=== PATIENT | female | born 1940 | race African-American/Black ===

== ENCOUNTER 2021-12-17 18:11 | Inpatient (IN) | payer OTHER ==
[2021-12-17] MEDS ORDERED: ASPIRIN 81 MG CHEWABLE TABLETS PO ONE (18:18)
[2021-12-17] MEDS: SODIUM CHLORIDE 1,000 ML IV SCH (18:42)
[2021-12-17] MEDS ORDERED: ASPIRIN 300 MG SUPP.RECT PR ONE (18:43)
[2021-12-17] MEDS ORDERED: ASPIRIN 300 MG SUPP.RECT RC ONE (18:53)
[2021-12-17 19:39] LABS: BASO % 0.9 % (0-2.0); EOS % 5.7 % (0-4.5); HEMATOCRIT 37.6 % (32.4-45.2); HEMOGLOBIN 12.4 GM/dL (10.7-15.3); LYMPH % 26.2 % (8-40); MCH 27.5 pg (25.7-33.7); MEAN CELL VOLUME 83.3 fl (80-96); MEAN PLT VOLUME 8.8 fl (7.5-11.1); MONO % 8.1 % (3.8-10.2); NEUT % 59.1 % (42.8-82.8); PLATELET COUNT 365 10^3/uL (134-434); RBC 4.51 M/mm3 (3.60-5.2); RDW 16.5 % (11.6-15.6); WHITE BLOOD COUNT 5.1 K/mm3 (4.0-10.0)
[2021-12-17 20:20] LABS: CALCIUM 9.4 mg/dL (8.5-10.1)
[2021-12-17 20:21] LABS: ALBUMIN 2.8 g/dl (3.4-5.0); BLOOD UREA NITROGEN 20.6 mg/dL (7-18)
[2021-12-17 20:24] LABS: CREATININE 0.7 mg/dL (0.55-1.3)
[2021-12-17 20:25] LABS: BILIRUBIN,TOTAL 0.4 mg/dL (0.2-1); TOT PROT 7.8 g/dl (6.4-8.2)
[2021-12-17 20:29] LABS: ACTIVATED PTT 27.9 SECONDS (25.2-36.5); INR 1.05 (0.83-1.09); PROTHROMBIN TIME (PATIENT) 12.1 SEC (9.7-13.0)
[2021-12-18 07:08] LABS: EPI CELLS 10 /uL (0-25.1); HYALINE CASTS 1 /uL (0-3.1); PH,URINE 6.5 (5.0-8.0); URINE APPEARANCE CLEAR; URINE BACTERIA >9,000 /uL (0-1359); URINE BILIRUBIN NEGATIVE (NEGATIVE); URINE COLOR YELLOW; URINE GLUCOSE (UA) NEGATIVE (NEGATIVE); URINE KETONE NEGATIVE (NEGATIVE); URINE LEUK ESTERASE NEGATIVE (NEGATIVE); URINE NITRITE POSITIVE (NEGATIVE); URINE PROTEIN TRACE (NEGATIVE); URINE RBC 30 /uL (0-23.9); URINE WBC 33 /uL (0-25.8)
[2021-12-18 07:55] LABS: BASO % 0.7 % (0-2.0); EOS % 2.3 % (0-4.5); HEMATOCRIT 36.3 % (32.4-45.2); LYMPH % 16.5 % (8-40); MCH 27.5 pg (25.7-33.7); MCHC 33.1 g/dl (32.0-36.0); MEAN CELL VOLUME 83.1 fl (80-96); MEAN PLT VOLUME 8.7 fl (7.5-11.1); MONO % 8.2 % (3.8-10.2); NEUT % 72.3 % (42.8-82.8); PLATELET COUNT 321 10^3/uL (134-434); RBC 4.37 M/mm3 (3.60-5.2); RDW 16.9 % (11.6-15.6); WHITE BLOOD COUNT 4.9 K/mm3 (4.0-10.0)
[2021-12-18 08:32] LABS: ALBUMIN 2.8 g/dl (3.4-5.0); BLOOD UREA NITROGEN 18.6 mg/dL (7-18); CALCIUM 9.2 mg/dL (8.5-10.1)
[2021-12-18 08:35] LABS: CREATININE 0.6 mg/dL (0.55-1.3)
[2021-12-18 08:36] LABS: BILIRUBIN,TOTAL 0.4 mg/dL (0.2-1)
[2021-12-18 08:37] LABS: TOT PROT 7.3 g/dl (6.4-8.2)
[2021-12-18] MEDS ORDERED: ASPIRIN 81 MG CHEWABLE TABLETS PO SCH (10:00)
[2021-12-18] MEDS ORDERED: cefTRIAXone SODIUM 1 GM VIAL ONE (10:20)
[2021-12-18] MEDS: CEFTRIAXONE 1 GM in DEXTROSE 5%-WATER - 50 ML IVPB ONE ×2 (10:23→11:12)
[2021-12-18] MEDS ORDERED: hydrALAZINE HCL 10 MG TABLET ONE ×3 (11:13→21:35)
[2021-12-18] MEDS ORDERED: METOPROLOL TARTRATE 25 MG TABLET (FP) ONE ×2 (11:13→21:35)
[2021-12-18] MEDS: METOPROLOL TARTRATE 25 MG TABLET (FP) NGT SCH ×2 (11:25→21:47)
[2021-12-18] MEDS: hydrALAZINE HCL 10 MG TABLET PO SCH ×4 (11:25→22:54)
[2021-12-18] MEDS: SODIUM CHLORIDE 1,000 ML IV SCH (19:15)
[2021-12-18] MEDS ORDERED: ATORVASTATIN CA 80 MG TABLET (FP) ONE (21:35)
[2021-12-18] MEDS: ATORVASTATIN CA 80 MG TABLET (FP) NGT SCH (21:47)
[2021-12-18] MEDS: LATANOPROST 0.005% OPHTH SOLN 2.5ML BOTTLE OU SCH (22:31)
[2021-12-19] MEDS ORDERED: CEFTRIAXONE 1 GM in DEXTROSE 5%-WATER - 50 ML IVPB SCH (10:00)
[2021-12-19] MEDS: hydrALAZINE HCL 10 MG TABLET PO SCH ×3 (10:41→17:23)
[2021-12-19] MEDS: METOPROLOL TARTRATE 25 MG TABLET (FP) NGT SCH ×2 (10:41→21:48)
[2021-12-19] MEDS: ASPIRIN 81 MG CHEWABLE TABLETS NGT SCH (10:41)
[2021-12-19] MEDS: NIFEdipine 10 MG CAPSULE (FP) PO SCH (14:15)
[2021-12-19] MEDS: VALSARTAN 80 MG TABLET PO SCH (14:37)
[2021-12-19] MEDS: LATANOPROST 0.005% OPHTH SOLN 2.5ML BOTTLE OU SCH (21:48)
[2021-12-19] MEDS: ATORVASTATIN CA 80 MG TABLET (FP) NGT SCH (21:48)
[2021-12-20] MEDS: hydrALAZINE HCL 10 MG TABLET PO SCH ×2 (00:17→05:43)
[2021-12-20] MEDS: VALSARTAN 80 MG TABLET PO SCH (09:27)
[2021-12-20] MEDS: ASPIRIN 81 MG CHEWABLE TABLETS NGT SCH (09:27)
[2021-12-20] MEDS: METOPROLOL TARTRATE 25 MG TABLET (FP) NGT SCH ×2 (09:27→22:16)
[2021-12-20] MEDS: hydrALAZINE HCL 25 MG TABLET (FP) PO SCH ×2 (13:30→22:16)
[2021-12-20 22:10] VITALS: BMI 23.8
[2021-12-20] MEDS: ATORVASTATIN CA 80 MG TABLET (FP) NGT SCH (22:16)
[2021-12-20] MEDS: LATANOPROST 0.005% OPHTH SOLN 2.5ML BOTTLE OU SCH (22:17)
[2021-12-21] MEDS: hydrALAZINE HCL 25 MG TABLET (FP) PO SCH ×4 (05:54→21:46)
[2021-12-21] MEDS: ASPIRIN 81 MG CHEWABLE TABLETS NGT SCH (09:05)
[2021-12-21] MEDS: METOPROLOL TARTRATE 25 MG TABLET (FP) NGT SCH ×3 (09:06→21:46)
[2021-12-21] MEDS: VALSARTAN 80 MG TABLET PO SCH (09:06)
[2021-12-21] MEDS: ATORVASTATIN CA 80 MG TABLET (FP) NGT SCH (21:43)
[2021-12-21] MEDS: LATANOPROST 0.005% OPHTH SOLN 2.5ML BOTTLE OU SCH (21:46)
[2021-12-22] MEDS: hydrALAZINE HCL 25 MG TABLET (FP) PO SCH (05:52)
[2021-12-22] MEDS: METOPROLOL TARTRATE 25 MG TABLET (FP) NGT SCH (09:43)
[2021-12-22] MEDS: VALSARTAN 80 MG TABLET PO SCH (09:43)
[2021-12-22] MEDS ORDERED: ASPIRIN/DIPYRIDAMOLE 25 MG/200 MG CAPSULE PO SCH (10:00)
[2021-12-22 13:19] VITALS: BP 128/58; PULSE 78; RESP 22; TEMP 97.4
== END 2021-12-22 14:44 | DRG 65 ==
LOC: JER 18:11 → JERBED 23:00 → J4W 12-18 22:08
PROVIDERS: ADMIT Internal Medicine; ATTEND Family Medicine
DX: I63.59 Cerebral infarction due to unspecified occlusion or stenosis of other cerebral artery (principal); G81.91 Hemiplegia, unspecified affecting right dominant side; N39.0 Urinary tract infection, site not specified; I10 Essential (primary) hypertension; G30.9 Alzheimer's disease, unspecified; F02.80 Dementia in other diseases classified elsewhere, unspecified severity, without behavioral disturbance, psychotic disturbance, mood disturbance, and anxiety; R47.81 Slurred speech; I44.30 Unspecified atrioventricular block
CPT/HCPCS: 36415; 70450-TC; 70496-TC; 70498-TC; 70551-TC; 71045-TC-FY; 80053; 80061; 81003; 83036; 84443; 84484; 85025; 85610; 85730; 86850; 86900; 86901; 93005; 93010; 93880-TC; 97116-GP; 97162-GP; 99285-25; C9803-CS; Q9967; U0003; U0005

== ENCOUNTER 2022-01-07 16:39 | Inpatient (IN) | payer OTHER ==
[2022-01-07 22:01] LABS: BASO % 0.8 % (0-2.0); EOS % 2.1 % (0-4.5); HEMATOCRIT 36.6 % (32.4-45.2); HEMOGLOBIN 12.1 GM/dL (10.7-15.3); LYMPH % 10.7 % (8-40); MCH 27.8 pg (25.7-33.7); MEAN CELL VOLUME 84.1 fl (80-96); MEAN PLT VOLUME 8.5 fl (7.5-11.1); MONO % 4.2 % (3.8-10.2); NEUT % 82.2 % (42.8-82.8); PLATELET COUNT 377 10^3/uL (134-434); RBC 4.36 M/mm3 (3.60-5.2); RDW 16.3 % (11.6-15.6); WHITE BLOOD COUNT 7.4 K/mm3 (4.0-10.0)
[2022-01-07 22:13] LABS: INR 1.18 (0.83-1.09); PROTHROMBIN TIME (PATIENT) 13.6 SEC (9.7-13.0)
[2022-01-07 22:16] LABS: ACTIVATED PTT 28.4 SECONDS (25.2-36.5)
[2022-01-07 22:23] LABS: CALCIUM 9.2 mg/dL (8.5-10.1)
[2022-01-07 22:24] LABS: ALBUMIN 2.8 g/dl (3.4-5.0); BLOOD UREA NITROGEN 10.6 mg/dL (7-18)
[2022-01-07 22:27] LABS: CREATININE 0.6 mg/dL (0.55-1.3)
[2022-01-07 22:28] LABS: BILIRUBIN,TOTAL 0.4 mg/dL (0.2-1); TOT PROT 7.1 g/dl (6.4-8.2)
[2022-01-08] MEDS: DEXTROSE 5%-NORMAL SALINE 1,000 ML IV SCH ×2 (00:36→16:14)
[2022-01-08] MEDS ORDERED: hydrALAZINE HCL 20 MG/ML VIAL IVPUSH PRN (10:19)
[2022-01-08] MEDS ORDERED: ACETAMINOPHEN 1000 MG/100 ML BAG IVPB PRN (10:21)
[2022-01-08 10:41] LABS: BASO % 0.6 % (0-2.0); EOS % 2.7 % (0-4.5); HEMATOCRIT 35.5 % (32.4-45.2); HEMOGLOBIN 11.7 GM/dL (10.7-15.3); LYMPH % 10.4 % (8-40); MEAN CELL VOLUME 84.9 fl (80-96); MEAN PLT VOLUME 8.7 fl (7.5-11.1); MONO % 6.5 % (3.8-10.2); NEUT % 79.8 % (42.8-82.8); PLATELET COUNT 322 10^3/uL (134-434); RBC 4.18 M/mm3 (3.60-5.2); WHITE BLOOD COUNT 6.5 K/mm3 (4.0-10.0)
[2022-01-08] MEDS: NYSTATIN 500,000 UNITS/5 ML SUSPENSION PO SCH ×3 (12:01→23:32)
[2022-01-08 12:23] LABS: BLOOD UREA NITROGEN 10.6 mg/dL (7-18); CREATININE 0.5 mg/dL (0.55-1.3); GLUCOSE,RANDOM 132 mg/dL (74-106); SODIUM 144 mmol/L (136-145)
[2022-01-08 12:24] LABS: CHLORIDE 4 mmol/L (98-107); CO2 112 mmol/L (21-32)
[2022-01-08 12:25] LABS: MAGNESIUM 1.9 mg/dL (1.8-2.4); PHOSPHOROUS 2.9 mg/dL (2.5-4.9)
[2022-01-09] MEDS: NYSTATIN 500,000 UNITS/5 ML SUSPENSION PO SCH ×4 (05:03→23:45)
[2022-01-09] MEDS: DEXTROSE 5%-NORMAL SALINE 1,000 ML IV SCH ×2 (05:03→17:39)
[2022-01-09] MEDS: NYSTATIN POWDER 100,000 UNITS/GM - 15 GM TOPICAL POWDER TP SCH ×2 (11:31→21:13)
[2022-01-09 13:04] VITALS: BMI 22.4
[2022-01-10] MEDS: NYSTATIN 500,000 UNITS/5 ML SUSPENSION PO SCH ×3 (06:47→17:58)
[2022-01-10] MEDS: DEXTROSE 5%-NORMAL SALINE 1,000 ML IV SCH ×2 (06:48→11:16)
[2022-01-10] MEDS: NYSTATIN POWDER 100,000 UNITS/GM - 15 GM TOPICAL POWDER TP SCH ×2 (11:15→22:18)
[2022-01-10] MEDS: PANTOPRAZOLE SODIUM 40 MG VIAL IVPUSH SCH (11:16)
[2022-01-10] MEDS: METOPROLOL TARTRATE 5 MG/5 ML VIAL IVPUSH PRN ×2 (11:17→18:34)
[2022-01-10] MEDS ORDERED: cloNIDine-TTS 0.1 MG/24 HRS PATCH.TDWK TD SCH (14:30)
[2022-01-10] MEDS: METOPROLOL TARTRATE 5 MG/5 ML VIAL IVPB PRN (22:19)
[2022-01-11] MEDS: NYSTATIN 500,000 UNITS/5 ML SUSPENSION PO SCH ×5 (01:21→23:11)
[2022-01-11] MEDS: DEXTROSE 5%-NORMAL SALINE 1,000 ML IV SCH ×2 (02:01→21:10)
[2022-01-11] MEDS: METOPROLOL TARTRATE 5 MG/5 ML VIAL IVPB PRN ×3 (06:19→21:10)
[2022-01-11] MEDS: NYSTATIN POWDER 100,000 UNITS/GM - 15 GM TOPICAL POWDER TP SCH ×2 (10:02→21:10)
[2022-01-11] MEDS: PANTOPRAZOLE SODIUM 40 MG VIAL IVPUSH SCH (10:02)
[2022-01-12] MEDS: NYSTATIN 500,000 UNITS/5 ML SUSPENSION PO SCH ×4 (05:18→23:04)
[2022-01-12] MEDS: METOPROLOL TARTRATE 5 MG/5 ML VIAL IVPB PRN (06:43)
[2022-01-12 08:05] LABS: HEMATOCRIT 36.6 % (32.4-45.2); HEMOGLOBIN 11.8 GM/dL (10.7-15.3); MCHC 32.1 g/dl (32.0-36.0); MEAN PLT VOLUME 9.1 fl (7.5-11.1); PLATELET COUNT 282 10^3/uL (134-434); RBC 4.35 M/mm3 (3.60-5.2); RDW 16.2 % (11.6-15.6); WHITE BLOOD COUNT 8.8 K/mm3 (4.0-10.0)
[2022-01-12 08:30] LABS: CALCIUM 8.9 mg/dL (8.5-10.1)
[2022-01-12 08:31] LABS: BLOOD UREA NITROGEN 8.5 mg/dL (7-18); MAGNESIUM 1.5 mg/dL (1.8-2.4)
[2022-01-12 08:34] LABS: CREATININE 0.4 mg/dL (0.55-1.3)
[2022-01-12 08:36] LABS: ALBUMIN 2.1 g/dl (3.4-5.0)
[2022-01-12] MEDS: PANTOPRAZOLE SODIUM 40 MG VIAL IVPUSH SCH (09:48)
[2022-01-12] MEDS: NYSTATIN POWDER 100,000 UNITS/GM - 15 GM TOPICAL POWDER TP SCH ×2 (09:48→23:05)
[2022-01-12] MEDS ORDERED: KCL 10 MEQ IVPB 10 MEQ/100 ML INFUS.BAG IVPB SCH ×2 (13:45→17:30)
[2022-01-12] MEDS: DEXTROSE 5%-NORMAL SALINE 1,000 ML IV SCH (18:20)
[2022-01-13] MEDS: NYSTATIN 500,000 UNITS/5 ML SUSPENSION PO SCH ×4 (05:25→23:05)
[2022-01-13] MEDS: PANTOPRAZOLE SODIUM 40 MG VIAL IVPUSH SCH (09:36)
[2022-01-13] MEDS: NYSTATIN POWDER 100,000 UNITS/GM - 15 GM TOPICAL POWDER TP SCH ×2 (09:37→22:54)
[2022-01-13] MEDS: DEXTROSE 5%-NORMAL SALINE 1,000 ML IV SCH (11:58)
[2022-01-13] MEDS ORDERED: MAGNESIUM SULF 50% (8.12 MEQ/2 ML-1 GM VIAL) IVPB ONE (12:01)
[2022-01-13] MEDS ORDERED: AMINO ACIDS 4.25%/D5W 1,000 ML IV SCH (12:15)
[2022-01-13] MEDS: KCL 10 MEQ IVPB 10 MEQ/100 ML INFUS.BAG IVPB SCH ×2 (15:58→16:59)
[2022-01-14] MEDS: METOPROLOL TARTRATE 5 MG/5 ML VIAL IVPB PRN ×3 (03:04→18:26)
[2022-01-14] MEDS: NYSTATIN 500,000 UNITS/5 ML SUSPENSION PO SCH ×3 (06:50→18:28)
[2022-01-14] MEDS: PANTOPRAZOLE SODIUM 40 MG VIAL IVPUSH SCH (10:59)
[2022-01-14] MEDS: NYSTATIN POWDER 100,000 UNITS/GM - 15 GM TOPICAL POWDER TP SCH ×2 (11:00→22:47)
[2022-01-14] MEDS ORDERED: GLUCAGON 1 MG KIT ONE (11:44)
[2022-01-14 12:38] LABS: HEMATOCRIT 34.2 % (32.4-45.2); HEMOGLOBIN 11.3 GM/dL (10.7-15.3); MCH 27.8 pg (25.7-33.7); MEAN CELL VOLUME 84.2 fl (80-96); MEAN PLT VOLUME 8.9 fl (7.5-11.1); PLATELET COUNT 295 10^3/uL (134-434); RBC 4.06 M/mm3 (3.60-5.2); RDW 15.5 % (11.6-15.6); WHITE BLOOD COUNT 7.5 K/mm3 (4.0-10.0)
[2022-01-14] MEDS ORDERED: FENTANYL CITRATE/PF 50 MCG/ML VIAL IVPUSH ONE ×2 (13:20→13:30)
[2022-01-14] MEDS ORDERED: GLUCAGON 1 MG KIT IVPUSH ONE (13:26)
[2022-01-14 14:34] LABS: CALCIUM 8.8 mg/dL (8.5-10.1); MAGNESIUM 1.8 mg/dL (1.8-2.4)
[2022-01-14 14:37] LABS: CREATININE 0.4 mg/dL (0.55-1.3)
[2022-01-14] MEDS: POTASSIUM CHLORIDE 20 MEQ in AMINO ACIDS 4.25%/D5W 1,000 ML IV SCH (18:27)
[2022-01-15] MEDS: NYSTATIN 500,000 UNITS/5 ML SUSPENSION PO SCH ×3 (05:55)
[2022-01-15] MEDS ORDERED: ACETAMINOPHEN 650 MG/20.3 ML ORAL SOLUTION (CUPS) GT PRN (07:00)
[2022-01-15 09:54] LABS: CREATININE 0.4 mg/dL (0.55-1.3)
[2022-01-15 09:55] LABS: TOT PROT 5.8 g/dl (6.4-8.2)
[2022-01-15 09:56] LABS: BLOOD UREA NITROGEN 16.9 mg/dL (7-18); CALCIUM 8.7 mg/dL (8.5-10.1)
[2022-01-15 09:58] LABS: BILIRUBIN,TOTAL 0.6 mg/dL (0.2-1)
[2022-01-15] MEDS ORDERED: FAMOTIDINE 40 MG/5 ML ORAL SUSPENSION PEG SCH (10:00)
[2022-01-15] MEDS ORDERED: METOPROLOL TARTRATE 25 MG TABLET (FP) GT SCH (10:00)
[2022-01-15 10:15] LABS: MAGNESIUM 1.5 mg/dL (1.8-2.4)
[2022-01-15] MEDS: NYSTATIN POWDER 100,000 UNITS/GM - 15 GM TOPICAL POWDER TP SCH ×2 (10:53→21:38)
[2022-01-15] MEDS ORDERED: MAGNESIUM SULF 50% (8.12 MEQ/2 ML-1 GM VIAL) IVPB ONE (10:56)
[2022-01-15] MEDS: PANTOPRAZOLE SODIUM 40 MG VIAL IVPUSH SCH (12:18)
[2022-01-15] MEDS: METOPROLOL TARTRATE 5 MG/5 ML VIAL IVPB PRN (14:09)
[2022-01-15] MEDS: KCL 10 MEQ IVPB 10 MEQ/100 ML INFUS.BAG IVPB SCH ×3 (15:16→16:57)
[2022-01-15] MEDS ORDERED: AMINO ACIDS 4.25%/D5W 1,000 ML IV SCH (18:45)
[2022-01-15] MEDS: POTASSIUM CHLORIDE ORAL LIQUID 20 MEQ/15 ML PEG SCH (19:31)
[2022-01-15] MEDS: POTASSIUM CHLORIDE 20 MEQ in AMINO ACIDS 4.25%/D5W 1,000 ML IV SCH (21:38)
[2022-01-16] MEDS: METOPROLOL TARTRATE 5 MG/5 ML VIAL IVPB PRN ×2 (07:54→23:13)
[2022-01-16 08:19] LABS: HEMATOCRIT 32.5 % (32.4-45.2); HEMOGLOBIN 10.8 GM/dL (10.7-15.3); MCH 27.7 pg (25.7-33.7); MCHC 33.4 g/dl (32.0-36.0); MEAN CELL VOLUME 82.9 fl (80-96); MEAN PLT VOLUME 8.9 fl (7.5-11.1); PLATELET COUNT 294 10^3/uL (134-434); RBC 3.92 M/mm3 (3.60-5.2); RDW 15.7 % (11.6-15.6); WHITE BLOOD COUNT 10.3 K/mm3 (4.0-10.0)
[2022-01-16 08:56] LABS: BLOOD UREA NITROGEN 16.4 mg/dL (7-18); CALCIUM 8.8 mg/dL (8.5-10.1); MAGNESIUM 1.8 mg/dL (1.8-2.4)
[2022-01-16 08:59] LABS: CREATININE 0.4 mg/dL (0.55-1.3)
[2022-01-16 09:03] LABS: BILIRUBIN,TOTAL 0.7 mg/dL (0.2-1); TOT PROT 6.1 g/dl (6.4-8.2)
[2022-01-16] MEDS: NYSTATIN POWDER 100,000 UNITS/GM - 15 GM TOPICAL POWDER TP SCH ×2 (09:21→21:32)
[2022-01-16] MEDS: PANTOPRAZOLE SODIUM 40 MG VIAL IVPUSH SCH (09:21)
[2022-01-16] MEDS: POTASSIUM CHLORIDE 20 MEQ in AMINO ACIDS 4.25%/D5W 1,000 ML IV SCH ×2 (10:38→17:00)
[2022-01-16] MEDS ORDERED: ONDANSETRON 4 MG/2 ML VIAL IVPUSH PRN ×2 (12:53→15:09)
[2022-01-16] MEDS ORDERED: LACTATED RINGERS SOLUTION 1,000 ML IV SCH (13:00)
[2022-01-16] MEDS ORDERED: ETOMIDATE 20 MG/10 ML AMPUL IVPUSH ONE (13:01)
[2022-01-16] MEDS ORDERED: LIDOCAINE HCL/PF 2% SDV 5ML VIAL ONE (13:03)
[2022-01-16] MEDS ORDERED: PIPERACILLIN/TAZOBACTAM 3.375 GM VIAL IVPB ONE (13:39)
[2022-01-16] MEDS ORDERED: GLYCOPYRROLATE 0.2 MG/1 ML VIAL ONE (14:02)
[2022-01-16] MEDS ORDERED: ONDANSETRON 4 MG/2 ML VIAL ONE ×2 (14:02→14:14)
[2022-01-16] MEDS ORDERED: NEOSTIGMINE METHYLSULFATE 0.5 MG/ML - 10 ML MDV ONE (14:02)
[2022-01-16] MEDS ORDERED: ACETAMINOPHEN 650 MG/20.3 ML ORAL SOLUTION (CUPS) GT PRN (15:09)
[2022-01-16] MEDS: KCL 10 MEQ IVPB 10 MEQ/100 ML INFUS.BAG IVPB SCH ×3 (15:24→17:57)
[2022-01-16] MEDS ORDERED: hydrALAZINE HCL 20 MG/ML VIAL IVPUSH ONE (16:08)
[2022-01-16] MEDS: LACTATED RINGERS SOLUTION 1,000 ML IV SCH ×2 (16:20→17:02)
[2022-01-16] MEDS: FAT EMULSION/OLIVE/SOY/PHOSPHO 250 ML IV SCH (21:29)
[2022-01-16] MEDS ORDERED: FAT EMULSION/OLIVE/SOY/PHOSPHO 250 ML IV SCH (22:00)
[2022-01-16] MEDS ORDERED: FAT EMULSION/OLIVE/SOY (CLINOLIPID) 250 ML EMULSION IV SCH (22:00)
[2022-01-17] MEDS: POTASSIUM CHLORIDE 20 MEQ in AMINO ACIDS 4.25%/D5W 1,000 ML IV SCH (02:37)
[2022-01-17] MEDS: METOPROLOL TARTRATE 5 MG/5 ML VIAL IVPB PRN (06:37)
[2022-01-17] MEDS: CYANOCOBALAMIN (VITAMIN B-12) 1000 MCG/1 ML VIAL IM SCH (09:07)
[2022-01-17] MEDS: PANTOPRAZOLE SODIUM 40 MG VIAL IVPUSH SCH (09:07)
[2022-01-17] MEDS: NYSTATIN POWDER 100,000 UNITS/GM - 15 GM TOPICAL POWDER TP SCH ×2 (09:07→22:45)
[2022-01-17] MEDS: THIAMINE HCL 200 MG/2 ML VIAL IVPB SCH (09:07)
[2022-01-17 09:22] LABS: HEMATOCRIT 32.4 % (32.4-45.2); HEMOGLOBIN 10.7 GM/dL (10.7-15.3); MCH 27.5 pg (25.7-33.7); MCHC 33.2 g/dl (32.0-36.0); MEAN CELL VOLUME 82.8 fl (80-96); MEAN PLT VOLUME 9.2 fl (7.5-11.1); PLATELET COUNT 343 10^3/uL (134-434); RBC 3.91 M/mm3 (3.60-5.2); RDW 15.7 % (11.6-15.6)
[2022-01-17 09:57] LABS: BLOOD UREA NITROGEN 17.1 mg/dL (7-18); CALCIUM 8.7 mg/dL (8.5-10.1)
[2022-01-17 09:58] LABS: ALBUMIN 1.8 g/dl (3.4-5.0); MAGNESIUM 1.7 mg/dL (1.8-2.4)
[2022-01-17 10:00] LABS: CREATININE 0.4 mg/dL (0.55-1.3)
[2022-01-17] MEDS ORDERED: CYANOCOBALAMIN (VITAMIN B-12) 1000 MCG/1 ML VIAL IM SCH (10:00)
[2022-01-17] MEDS ORDERED: THIAMINE HCL 200 MG/2 ML VIAL IVPB SCH (10:00)
[2022-01-17 10:02] LABS: BILIRUBIN,TOTAL 0.7 mg/dL (0.2-1); TOT PROT 5.9 g/dl (6.4-8.2)
[2022-01-17] MEDS ORDERED: MULTIVIT INJ. ADULT COMBO WITH VIT K 1 COMBO 10 ML VIAL IV SCH ×2 (11:00)
[2022-01-17] MEDS: AMINO ACIDS 4.25%/D5W 1,000 ML with POTASSIUM CHLORIDE 20 MEQ IV SCH (17:10)
[2022-01-17] MEDS: FAT EMULSION/OLIVE/SOY/PHOSPHO 250 ML IV SCH (22:44)
[2022-01-18] MEDS: METOPROLOL TARTRATE 5 MG/5 ML VIAL IVPB PRN (01:08)
[2022-01-18] MEDS: AMINO ACIDS 4.25%/D5W 1,000 ML with POTASSIUM CHLORIDE 20 MEQ IV SCH ×2 (06:44→06:45)
[2022-01-18] MEDS: PANTOPRAZOLE SODIUM 40 MG VIAL IVPUSH SCH (09:03)
[2022-01-18] MEDS: THIAMINE HCL 200 MG/2 ML VIAL IVPB SCH (09:03)
[2022-01-18] MEDS: CYANOCOBALAMIN (VITAMIN B-12) 1000 MCG/1 ML VIAL IM SCH (09:03)
[2022-01-18] MEDS: NYSTATIN POWDER 100,000 UNITS/GM - 15 GM TOPICAL POWDER TP SCH ×2 (09:04→21:09)
[2022-01-18 09:33] LABS: BASO % 0.4 % (0-2.0); EOS % 1.1 % (0-4.5); HEMATOCRIT 34.6 % (32.4-45.2); HEMOGLOBIN 11.2 GM/dL (10.7-15.3); LYMPH % 6.4 % (8-40); MCH 26.9 pg (25.7-33.7); MCHC 32.3 g/dl (32.0-36.0); MEAN CELL VOLUME 83.3 fl (80-96); MEAN PLT VOLUME 9.5 fl (7.5-11.1); MONO % 4.3 % (3.8-10.2); NEUT % 87.8 % (42.8-82.8); PLATELET COUNT 403 10^3/uL (134-434); RBC 4.16 M/mm3 (3.60-5.2); RDW 15.9 % (11.6-15.6)
[2022-01-18 09:52] LABS: WHITE BLOOD COUNT 16.4 K/mm3 (4.0-10.0)
[2022-01-18 09:54] LABS: ALBUMIN 1.9 g/dl (3.4-5.0); BLOOD UREA NITROGEN 14.7 mg/dL (7-18)
[2022-01-18 09:57] LABS: CREATININE 0.4 mg/dL (0.55-1.3)
[2022-01-18 09:59] LABS: BILIRUBIN,TOTAL 0.5 mg/dL (0.2-1); TOT PROT 6.2 g/dl (6.4-8.2)
[2022-01-18] MEDS: LACTATED RINGERS SOLUTION 1,000 ML IV SCH (19:23)
[2022-01-19] MEDS: CYANOCOBALAMIN (VITAMIN B-12) 1000 MCG/1 ML VIAL IM SCH (10:49)
[2022-01-19] MEDS: THIAMINE HCL 200 MG/2 ML VIAL IVPB SCH (10:50)
[2022-01-19] MEDS: PANTOPRAZOLE SODIUM 40 MG VIAL IVPUSH SCH (10:50)
[2022-01-19] MEDS: NYSTATIN POWDER 100,000 UNITS/GM - 15 GM TOPICAL POWDER TP SCH ×2 (10:50→22:08)
[2022-01-19] MEDS: METOPROLOL TARTRATE 5 MG/5 ML VIAL IVPB PRN (22:09)
[2022-01-20 08:11] LABS: HEMATOCRIT 30.4 % (32.4-45.2); HEMOGLOBIN 9.9 GM/dL (10.7-15.3); MCH 27.4 pg (25.7-33.7); MCHC 32.4 g/dl (32.0-36.0); MEAN CELL VOLUME 84.5 fl (80-96); MEAN PLT VOLUME 8.7 fl (7.5-11.1); PLATELET COUNT 421 10^3/uL (134-434); RDW 15.9 % (11.6-15.6); WHITE BLOOD COUNT 11.9 K/mm3 (4.0-10.0)
[2022-01-20 08:18] LABS: BLOOD UREA NITROGEN 11.9 mg/dL (7-18); CALCIUM 8.5 mg/dL (8.5-10.1)
[2022-01-20 08:20] LABS: ALBUMIN 1.7 g/dl (3.4-5.0)
[2022-01-20 08:21] LABS: CREATININE 0.3 mg/dL (0.55-1.3)
[2022-01-20 08:23] LABS: BILIRUBIN,TOTAL 0.4 mg/dL (0.2-1); TOT PROT 5.5 g/dl (6.4-8.2)
[2022-01-20 09:26] LABS: ANISOCYTOSIS 2+; MACROCYTOSIS 0
[2022-01-20] MEDS: NYSTATIN POWDER 100,000 UNITS/GM - 15 GM TOPICAL POWDER TP SCH ×2 (11:08→22:36)
[2022-01-20] MEDS: THIAMINE HCL 200 MG/2 ML VIAL IVPB SCH (11:14)
[2022-01-20] MEDS: CYANOCOBALAMIN (VITAMIN B-12) 1000 MCG/1 ML VIAL IM SCH (11:15)
[2022-01-20] MEDS ORDERED: CEFAZOLIN 1 GM in DEXTROSE 5%-WATER - 50 ML IVPB SCH (18:00)
[2022-01-20] MEDS: PIPERACILLIN/TAZOB 3.375 GM 3.375 GM in DEXTROSE 5%-WATER - 50 ML IVPB SCH (18:22)
[2022-01-20] MEDS: VALSARTAN 80 MG TABLET PO SCH (18:22)
[2022-01-20] MEDS: VANCOMYCIN/WATER FOR INJ (PEG) 1,000 MG/200 ML BAG IVPB SCH (20:06)
[2022-01-20] MEDS ORDERED: metoPROLOL SUCCINATE 25 MG TAB.SR.24H (FP) PO SCH (22:00)
[2022-01-20] MEDS: METOPROLOL TARTRATE 25 MG TABLET (FP) PO SCH (22:36)
[2022-01-21] MEDS: PIPERACILLIN/TAZOB 3.375 GM 3.375 GM in DEXTROSE 5%-WATER - 50 ML IVPB SCH ×3 (01:21→17:39)
[2022-01-21] MEDS: VALSARTAN 80 MG TABLET PO SCH (09:19)
[2022-01-21] MEDS: METOPROLOL TARTRATE 25 MG TABLET (FP) PO SCH ×2 (09:20→21:58)
[2022-01-21] MEDS: CYANOCOBALAMIN (VITAMIN B-12) 1000 MCG/1 ML VIAL IM SCH (09:20)
[2022-01-21] MEDS: NYSTATIN POWDER 100,000 UNITS/GM - 15 GM TOPICAL POWDER TP SCH ×2 (09:22→21:58)
[2022-01-21 09:40] LABS: CALCIUM 9.3 mg/dL (8.5-10.1)
[2022-01-21 09:41] LABS: ALBUMIN 1.9 g/dl (3.4-5.0); BLOOD UREA NITROGEN 10.2 mg/dL (7-18)
[2022-01-21 09:43] LABS: BILIRUBIN,DIRECT 0.2 mg/dL (0.0-0.2); CREATININE 0.4 mg/dL (0.55-1.3)
[2022-01-21 09:45] LABS: BILIRUBIN,TOTAL 0.4 mg/dL (0.2-1); TOT PROT 6.1 g/dl (6.4-8.2)
[2022-01-21] MEDS: POLYETHYLENE GLYCOL (HEALTHYLAX) 3350 17 GM PACKET GT SCH ×3 (12:00→21:58)
[2022-01-21] MEDS: VANCOMYCIN/WATER FOR INJ (PEG) 1,000 MG/200 ML BAG IVPB SCH (17:39)
[2022-01-22] MEDS: PIPERACILLIN/TAZOB 3.375 GM 3.375 GM in DEXTROSE 5%-WATER - 50 ML IVPB SCH ×2 (02:35→11:49)
[2022-01-22] MEDS ORDERED: cloNIDine-TTS 0.1 MG/24 HRS PATCH.TDWK TD SCH ×2 (10:00)
[2022-01-22 10:06] LABS: HEMATOCRIT 30.2 % (32.4-45.2); HEMOGLOBIN 9.8 GM/dL (10.7-15.3); MCH 27.1 pg (25.7-33.7); MCHC 32.6 g/dl (32.0-36.0); MEAN CELL VOLUME 83.2 fl (80-96); MEAN PLT VOLUME 8.6 fl (7.5-11.1); PLATELET COUNT 487 10^3/uL (134-434); RBC 3.62 M/mm3 (3.60-5.2); RDW 15.9 % (11.6-15.6); WHITE BLOOD COUNT 9.4 K/mm3 (4.0-10.0)
[2022-01-22 10:39] LABS: ALBUMIN 1.8 g/dl (3.4-5.0)
[2022-01-22 10:40] LABS: BLOOD UREA NITROGEN 10.4 mg/dL (7-18); CALCIUM 8.9 mg/dL (8.5-10.1)
[2022-01-22 10:42] LABS: CREATININE 0.4 mg/dL (0.55-1.3)
[2022-01-22 10:43] LABS: BILIRUBIN,DIRECT 0.2 mg/dL (0.0-0.2)
[2022-01-22 10:44] LABS: BILIRUBIN,TOTAL 0.3 mg/dL (0.2-1); TOT PROT 5.9 g/dl (6.4-8.2)
[2022-01-22] MEDS: VALSARTAN 80 MG TABLET PO SCH (11:22)
[2022-01-22] MEDS: POLYETHYLENE GLYCOL (HEALTHYLAX) 3350 17 GM PACKET GT SCH ×2 (11:22→21:40)
[2022-01-22] MEDS: METOPROLOL TARTRATE 25 MG TABLET (FP) PO SCH ×2 (11:22→21:40)
[2022-01-22] MEDS: NYSTATIN POWDER 100,000 UNITS/GM - 15 GM TOPICAL POWDER TP SCH ×2 (11:43→21:40)
[2022-01-22] MEDS ORDERED: VALSARTAN 80 MG TABLET PO ONE (14:51)
[2022-01-22] MEDS: AMOX TR/POTASSIUM CLAVULANATE 250 MG/5 ML BOTTLE GT SCH (17:35)
[2022-01-23] MEDS: AMOX TR/POTASSIUM CLAVULANATE 250 MG/5 ML BOTTLE GT SCH (08:30)
[2022-01-23 09:34] LABS: TOT PROT 6.3 g/dl (6.4-8.2)
[2022-01-23 09:35] LABS: BILIRUBIN,TOTAL 0.3 mg/dL (0.2-1)
[2022-01-23 09:39] LABS: BILIRUBIN,DIRECT 0.1 mg/dL (0.0-0.2)
[2022-01-23] MEDS ORDERED: VALSARTAN 80 MG TABLET PO SCH (10:00)
[2022-01-23] MEDS: NYSTATIN POWDER 100,000 UNITS/GM - 15 GM TOPICAL POWDER TP SCH (10:23)
[2022-01-23] MEDS: POLYETHYLENE GLYCOL (HEALTHYLAX) 3350 17 GM PACKET GT SCH (10:23)
[2022-01-23] MEDS: METOPROLOL TARTRATE 25 MG TABLET (FP) PO SCH (10:23)
[2022-01-23 10:34] VITALS: RESP 20
[2022-01-23 14:47] VITALS: BP 201/90; PULSE 74; TEMP 98.2
== END 2022-01-23 14:55 | DRG 981 ==
LOC: JER 16:39 → SUPCPDRO 16:39 → UNDOADMOB 19:55 → JERBED 19:55 → J7W 01-08 03:04 → INTOOBSV 01-09 10:32 → OBSVTOIN 01-09 10:32 → J7W 01-09 10:42 → OBSVTOIN 01-09 10:42 → JERBED 01-09 10:42
PROVIDERS: ADMIT Hospitalist; ATTEND Family Medicine
PROC: 0DH67UZ Insertion of Feeding Device into Stomach, Via Natural or Artificial Opening (ICD-10-PCS; principal; 2022-01-13)
PROC: 3E0G76Z Introduction of Nutritional Substance into Upper GI, Via Natural or Artificial Opening (ICD-10-PCS; 2022-01-13)
PROC: 0DP64UZ Removal of Feeding Device from Stomach, Percutaneous Endoscopic Approach (ICD-10-PCS; 2022-01-16)
PROC: 0DH64UZ Insertion of Feeding Device into Stomach, Percutaneous Endoscopic Approach (ICD-10-PCS; 2022-01-16)
PROC: 0DJ04ZZ Inspection of Upper Intestinal Tract, Percutaneous Endoscopic Approach (ICD-10-PCS; 2022-01-16 12:00)
DX: I69.891 Dysphagia following other cerebrovascular disease (principal); R53.2 Functional quadriplegia; B37.0 Candidal stomatitis; R47.01 Aphasia; T85.528A Displacement of other gastrointestinal prosthetic devices, implants and grafts, initial encounter; L02.211 Cutaneous abscess of abdominal wall; K94.22 Gastrostomy infection; T81.49XA Infection following a procedure, other surgical site, initial encounter; G30.9 Alzheimer's disease, unspecified; F02.80 Dementia in other diseases classified elsewhere, unspecified severity, without behavioral disturbance, psychotic disturbance, mood disturbance, and anxiety; E87.6 Hypokalemia; E83.42 Hypomagnesemia; I10 Essential (primary) hypertension; E86.0 Dehydration; E78.5 Hyperlipidemia, unspecified; M19.012 Primary osteoarthritis, left shoulder; M19.011 Primary osteoarthritis, right shoulder; D50.9 Iron deficiency anemia, unspecified; K59.00 Constipation, unspecified; B96.1 Klebsiella pneumoniae [K. pneumoniae] as the cause of diseases classified elsewhere; B95.61 Methicillin susceptible Staphylococcus aureus infection as the cause of diseases classified elsewhere; L89.152 Pressure ulcer of sacral region, stage 2; R62.7 Adult failure to thrive; Z68.22 Body mass index [BMI] 22.0-22.9, adult; Y84.8 Other medical procedures as the cause of abnormal reaction of the patient, or of later complication, without mention of misadventure at the time of the procedure; R79.89 Other specified abnormal findings of blood chemistry; Y83.8 Other surgical procedures as the cause of abnormal reaction of the patient, or of later complication, without mention of misadventure at the time of the procedure
CPT/HCPCS: 0241U-QW; 36415; 43752; 49440; 70450-TC; 71045-TC-FY; 74018-TC-FY; 74150-TC; 80048; 80053; 80076; 82728; 83516; 83540; 83550; 83735; 84100; 85025; 85027; 85610; 85730; 86038; 86140; 86803; 86850; 86900; 86901; 87040; 87070; 87186; 87205; 87340; 87517; 88300-TC; 93005; 93010; 94760; 99285-25; C9803-CS; U0003; U0005

== ENCOUNTER 2022-02-27 13:41 | Emergency (ER) | payer OTHER ==
[2022-02-27 14:00] VITALS: BP 136/73; PULSE 97; RESP 18; TEMP 97.4; BMI 25.7
== END 2022-02-27 19:10 ==
LOC: JER 13:41
DX: K94.23 Gastrostomy malfunction (principal)
CPT/HCPCS: 49440; 99284-25

== ENCOUNTER 2022-04-19 08:44 | Inpatient (IN) | payer OTHER ==
[2022-04-19 09:03] VITALS: BMI 19.9
[2022-04-19 14:22] LABS: BASO % 0.9 % (0-2.0); EOS % 3.2 % (0-4.5); HEMATOCRIT 27.6 % (32.4-45.2); HEMOGLOBIN 8.9 GM/dL (10.7-15.3); LYMPH % 20.3 % (8-40); MCH 26.5 pg (25.7-33.7); MCHC 32.3 g/dl (32.0-36.0); MEAN CELL VOLUME 82.2 fl (80-96); MEAN PLT VOLUME 7.9 fl (7.5-11.1); MONO % 8.1 % (3.8-10.2); NEUT % 67.5 % (42.8-82.8); PLATELET COUNT 565 10^3/uL (134-434); RBC 3.36 M/mm3 (3.60-5.2); RDW 16.6 % (11.6-15.6); WHITE BLOOD COUNT 7.2 K/mm3 (4.0-10.0)
[2022-04-19 14:49] LABS: CALCIUM 9.4 mg/dL (8.5-10.1)
[2022-04-19 14:50] LABS: BLOOD UREA NITROGEN 24.8 mg/dL (7-18); MAGNESIUM 2.2 mg/dL (1.8-2.4)
[2022-04-19 14:53] LABS: CREATININE 0.4 mg/dL (0.55-1.3)
[2022-04-19 14:54] LABS: BILIRUBIN,TOTAL 0.4 mg/dL (0.2-1); TOT PROT 7.4 g/dl (6.4-8.2)
[2022-04-19] MEDS ORDERED: METOPROLOL TARTRATE 25 MG TABLET (FP) GT SCH (22:00)
[2022-04-19] MEDS ORDERED: hydrALAZINE HCL 25 MG TABLET (FP) GT SCH (22:00)
[2022-04-20 06:55] VITALS: BP 119/77; PULSE 113; RESP 18; TEMP 98.9
[2022-04-20 08:48] LABS: BASO % 0.9 % (0-2.0); EOS % 4.9 % (0-4.5); HEMATOCRIT 29.1 % (32.4-45.2); HEMOGLOBIN 9.4 GM/dL (10.7-15.3); LYMPH % 20.3 % (8-40); MCH 26.5 pg (25.7-33.7); MCHC 32.2 g/dl (32.0-36.0); MEAN CELL VOLUME 82.2 fl (80-96); MEAN PLT VOLUME 8.1 fl (7.5-11.1); MONO % 9.9 % (3.8-10.2); PLATELET COUNT 561 10^3/uL (134-434); RBC 3.54 M/mm3 (3.60-5.2); WHITE BLOOD COUNT 6.2 K/mm3 (4.0-10.0)
[2022-04-20 09:28] LABS: BLOOD UREA NITROGEN 20.7 mg/dL (7-18)
[2022-04-20 09:30] LABS: CALCIUM 9.4 mg/dL (8.5-10.1)
[2022-04-20 09:31] LABS: ALBUMIN 2.1 g/dl (3.4-5.0); MAGNESIUM 2.1 mg/dL (1.8-2.4)
[2022-04-20 09:34] LABS: CREATININE 0.4 mg/dL (0.55-1.3); PHOSPHOROUS 3.4 mg/dL (2.5-4.9)
[2022-04-20 09:36] LABS: BILIRUBIN,TOTAL 0.4 mg/dL (0.2-1); TOT PROT 7.7 g/dl (6.4-8.2)
[2022-04-20] MEDS ORDERED: ATORVASTATIN CA 80 MG TABLET (FP) GT SCH (10:00)
[2022-04-20] MEDS ORDERED: FAMOTIDINE 40 MG/5 ML ORAL SUSPENSION PO SCH (10:00)
[2022-04-20] MEDS ORDERED: ASPIRIN 81 MG CHEWABLE TABLETS GT SCH (10:00)
== END 2022-04-20 13:55 | DRG 394 ==
LOC: JER 08:44 → JERBED 12:38 → OBSVTOIN 17:02
PROVIDERS: ADMIT Internal Medicine; ATTEND Family Medicine
PROC: 0DH63UZ Insertion of Feeding Device into Stomach, Percutaneous Approach (ICD-10-PCS; principal; 2022-04-20)
DX: K94.23 Gastrostomy malfunction (principal); I69.351 Hemiplegia and hemiparesis following cerebral infarction affecting right dominant side; Y83.8 Other surgical procedures as the cause of abnormal reaction of the patient, or of later complication, without mention of misadventure at the time of the procedure; I10 Essential (primary) hypertension; G30.9 Alzheimer's disease, unspecified; F02.80 Dementia in other diseases classified elsewhere, unspecified severity, without behavioral disturbance, psychotic disturbance, mood disturbance, and anxiety; I69.320 Aphasia following cerebral infarction; I69.390 Apraxia following cerebral infarction; E78.5 Hyperlipidemia, unspecified; R13.10 Dysphagia, unspecified
CPT/HCPCS: 36415; 49440; 80053; 82728; 83540; 83550; 83735; 84100; 84466; 85025; 85045; 93005; 93010; 99285-25; C9803-CS; G0378; U0003; U0005

== ENCOUNTER 2022-06-17 00:30 | Inpatient (IN) | payer OTHER ==
[2022-06-17 00:48] VITALS: BMI 21.4
[2022-06-17] MEDS ORDERED: PANTOPRAZOLE SODIUM 40 MG VIAL IVPUSH ONE (01:54)
[2022-06-17] MEDS ORDERED: PANTOPRAZOLE SODIUM 40 MG VIAL ONE ×2 (02:10→02:24)
[2022-06-17] MEDS ORDERED: PANTOPRAZOLE SODIUM 80 MG/200 ML BAG IVPB ONE (02:10)
[2022-06-17] MEDS: PANTOPRAZOLE SODIUM 80 MG in SODIUM CHLORIDE 100 ML IVPB SCH ×2 (02:40→11:25)
[2022-06-17 02:45] LABS: BASO % 0.3 % (0-2.0); EOS % 0.1 % (0-4.5); HEMATOCRIT 28.8 % (32.4-45.2); HEMOGLOBIN 9.7 GM/dL (10.7-15.3); LYMPH % 8.2 % (8-40); MCH 26.6 pg (25.7-33.7); MCHC 33.6 g/dl (32.0-36.0); MEAN CELL VOLUME 79.3 fl (80-96); MEAN PLT VOLUME 7.3 fl (7.5-11.1); MONO % 6.1 % (3.8-10.2); NEUT % 85.3 % (42.8-82.8); PLATELET COUNT 748 10^3/uL (134-434); RBC 3.63 M/mm3 (3.60-5.2); RDW 16.3 % (11.6-15.6); WHITE BLOOD COUNT 12.4 K/mm3 (4.0-10.0)
[2022-06-17 03:06] LABS: BLOOD UREA NITROGEN 23.8 mg/dL (7-18); CALCIUM 9.2 mg/dL (8.5-10.1)
[2022-06-17 03:07] LABS: ALBUMIN 1.7 g/dl (3.4-5.0)
[2022-06-17 03:10] LABS: CREATININE 0.7 mg/dL (0.55-1.3)
[2022-06-17 03:11] LABS: BILIRUBIN,TOTAL 0.8 mg/dL (0.2-1); TOT PROT 8.7 g/dl (6.4-8.2)
[2022-06-17 04:19] LABS: INR 1.56 (0.83-1.09)
[2022-06-17 04:22] LABS: ACTIVATED PTT 29.9 SECONDS (25.2-36.5)
[2022-06-17 05:11] LABS: ALBUMIN 1.9 g/dl (3.4-5.0); CALCIUM 9.7 mg/dL (8.5-10.1)
[2022-06-17 05:12] LABS: BLOOD UREA NITROGEN 25.9 mg/dL (7-18)
[2022-06-17 05:15] LABS: CREATININE 0.7 mg/dL (0.55-1.3)
[2022-06-17 05:16] LABS: BILIRUBIN,TOTAL 0.6 mg/dL (0.2-1); TOT PROT 8.9 g/dl (6.4-8.2)
[2022-06-17] MEDS ORDERED: PIPERACILLIN/TAZOB 4.5 GM 4.5 GM in DEXTROSE 5%-WATER 100 ML IVPB ONE (06:49)
[2022-06-17] MEDS ORDERED: PIPERACILLIN/TAZOB 4.5 GM 4.5 GM/100 ML BAG IVPB ONE (07:48)
[2022-06-17] MEDS ORDERED: BISACODYL 10 MG SUPP.RECT RC PRN (10:22)
[2022-06-17] MEDS: DEXTROSE 5%-NORMAL SALINE 1,000 ML IV SCH (11:25)
[2022-06-17 12:44] LABS: PH,URINE 6.5 (5.0-8.0); URINE APPEARANCE CLEAR; URINE BILIRUBIN NEGATIVE (NEGATIVE); URINE COLOR DK YELLOW; URINE GLUCOSE (UA) NEGATIVE (NEGATIVE); URINE KETONE NEGATIVE (NEGATIVE); URINE PROTEIN 1+ (NEGATIVE)
[2022-06-17 12:45] LABS: URINE LEUK ESTERASE NEGATIVE (NEGATIVE); URINE NITRITE NEGATIVE (NEGATIVE)
[2022-06-17] MEDS ORDERED: PIPERACILLIN/TAZOB 3.375 GM 3.375 GM in DEXTROSE 5%-WATER - 50 ML IVPB SCH (20:15)
[2022-06-17] MEDS: PIPERACILLIN/TAZOB 3.375 GM 3.375 GM in DEXTROSE 5%-WATER - 50 ML IVPB SCH (21:45)
[2022-06-18] MEDS: PANTOPRAZOLE SODIUM 80 MG in SODIUM CHLORIDE 100 ML IVPB SCH ×2 (01:52→08:54)
[2022-06-18] MEDS: PIPERACILLIN/TAZOB 3.375 GM 3.375 GM in DEXTROSE 5%-WATER - 50 ML IVPB SCH ×2 (03:46→09:18)
[2022-06-18 08:48] LABS: INR 1.47 (0.83-1.09)
[2022-06-18 08:53] LABS: BASO % 0.5 % (0-2.0); EOS % 0.7 % (0-4.5); HEMATOCRIT 25.6 % (32.4-45.2); HEMOGLOBIN 8.5 GM/dL (10.7-15.3); MCH 26.2 pg (25.7-33.7); MCHC 33.2 g/dl (32.0-36.0); MEAN PLT VOLUME 7.4 fl (7.5-11.1); MONO % 8.4 % (3.8-10.2); NEUT % 82.4 % (42.8-82.8); PLATELET COUNT 689 10^3/uL (134-434); RBC 3.24 M/mm3 (3.60-5.2); RDW 15.8 % (11.6-15.6); WHITE BLOOD COUNT 8.9 K/mm3 (4.0-10.0)
[2022-06-18 09:17] LABS: CALCIUM 8.7 mg/dL (8.5-10.1)
[2022-06-18 09:20] LABS: ALBUMIN 1.5 g/dl (3.4-5.0)
[2022-06-18 09:21] LABS: BLOOD UREA NITROGEN 33.7 mg/dL (7-18); MAGNESIUM 2.4 mg/dL (1.8-2.4)
[2022-06-18 09:23] LABS: PHOSPHOROUS 3.9 mg/dL (2.5-4.9)
[2022-06-18 09:24] LABS: CREATININE 0.8 mg/dL (0.55-1.3)
[2022-06-18 09:26] LABS: TOT PROT 7.1 g/dl (6.4-8.2)
[2022-06-18] MEDS: DEXTROSE 5%-NORMAL SALINE 1,000 ML IV SCH ×2 (13:18→18:34)
[2022-06-18] MEDS: COLLAGENASE CLOSTRIDIUM HIST. 30 GRAMS TUBE TP SCH (15:46)
[2022-06-19] MEDS: DEXTROSE 5%-NORMAL SALINE 1,000 ML IV SCH (06:22)
[2022-06-19] MEDS ORDERED: ENOXAPARIN NA (PORCINE) 40 MG/0.4 ML DISP.SYRIN SQ SCH (10:00)
[2022-06-19] MEDS: COLLAGENASE CLOSTRIDIUM HIST. 30 GRAMS TUBE TP SCH (11:11)
[2022-06-19 13:34] LABS: HEMATOCRIT 24.3 % (32.4-45.2); MCH 26.3 pg (25.7-33.7); MCHC 32.8 g/dl (32.0-36.0); MEAN CELL VOLUME 80.1 fl (80-96); MEAN PLT VOLUME 7.1 fl (7.5-11.1); PLATELET COUNT 627 10^3/uL (134-434); RBC 3.03 M/mm3 (3.60-5.2); RDW 16.1 % (11.6-15.6); WHITE BLOOD COUNT 6.7 K/mm3 (4.0-10.0)
[2022-06-19 14:02] LABS: CALCIUM 8.6 mg/dL (8.5-10.1)
[2022-06-19 14:03] LABS: ALBUMIN 1.4 g/dl (3.4-5.0); BLOOD UREA NITROGEN 27.3 mg/dL (7-18)
[2022-06-19 14:06] LABS: CREATININE 0.5 mg/dL (0.55-1.3)
[2022-06-19 14:08] LABS: BILIRUBIN,TOTAL 0.8 mg/dL (0.2-1); TOT PROT 6.6 g/dl (6.4-8.2)
[2022-06-19] MEDS ORDERED: ACETAMINOPHEN 325 MG TABLET (FP) PO SCH (14:45)
[2022-06-19] MEDS ORDERED: ZINC SULFATE 220 MG TABLET GT SCH (14:45)
[2022-06-19] MEDS ORDERED: ACETAMINOPHEN 650 MG/20.3 ML ORAL SOLUTION (CUPS) GT SCH (15:12)
[2022-06-19] MEDS: ATORVASTATIN CA 20 MG TABLET (FP) GT SCH (16:55)
[2022-06-19] MEDS: VALSARTAN 80 MG TABLET GT SCH (16:55)
[2022-06-19] MEDS: ASPIRIN 81 MG CHEWABLE TABLETS GT SCH (16:55)
[2022-06-19] MEDS: CHOLECALCIFEROL (VIT D3) 1,000 UNIT (25 MCG) TABLET GT SCH (16:55)
[2022-06-19] MEDS: hydrALAZINE HCL 25 MG TABLET (FP) GT SCH ×2 (16:55→23:19)
[2022-06-19] MEDS: FOLIC ACID 1 MG TABLET (FP) GT SCH (16:55)
[2022-06-19] MEDS: ZINC SULFATE 220 MG CAPSULE (FP) GT SCH (16:55)
[2022-06-19] MEDS: FAMOTIDINE 40 MG/5 ML ORAL SUSPENSION GT SCH ×2 (16:56→17:55)
[2022-06-19] MEDS: FERROUS SO4 300 MG/5 ML ORAL SOLN UNIT DOSE CUPS GT SCH ×2 (17:02→17:54)
[2022-06-19] MEDS: APIXABAN 2.5 MG TABLET GT SCH (17:02)
[2022-06-19] MEDS ORDERED: LATANOPROST 0.005% OPHTH SOLN 2.5ML BOTTLE OU SCH (22:00)
[2022-06-19] MEDS: METOPROLOL TARTRATE 25 MG TABLET (FP) GT SCH (23:19)
[2022-06-19] MEDS: ASCORBIC ACID 500 MG TABLET (FP) GT SCH (23:19)
[2022-06-20] MEDS: hydrALAZINE HCL 25 MG TABLET (FP) GT SCH ×2 (07:06→14:23)
[2022-06-20] MEDS: APIXABAN 2.5 MG TABLET GT SCH (09:46)
[2022-06-20] MEDS: ASCORBIC ACID 500 MG TABLET (FP) GT SCH (09:46)
[2022-06-20] MEDS: ATORVASTATIN CA 20 MG TABLET (FP) GT SCH (09:46)
[2022-06-20] MEDS: FOLIC ACID 1 MG TABLET (FP) GT SCH (09:46)
[2022-06-20] MEDS: CHOLECALCIFEROL (VIT D3) 1,000 UNIT (25 MCG) TABLET GT SCH (09:46)
[2022-06-20] MEDS: ASPIRIN 81 MG CHEWABLE TABLETS GT SCH (09:46)
[2022-06-20] MEDS: ZINC SULFATE 220 MG CAPSULE (FP) GT SCH (09:46)
[2022-06-20] MEDS: VALSARTAN 80 MG TABLET GT SCH (09:46)
[2022-06-20] MEDS: FERROUS SO4 300 MG/5 ML ORAL SOLN UNIT DOSE CUPS GT SCH (09:47)
[2022-06-20] MEDS: METOPROLOL TARTRATE 25 MG TABLET (FP) GT SCH (09:47)
[2022-06-20] MEDS: FAMOTIDINE 40 MG/5 ML ORAL SUSPENSION GT SCH (10:29)
[2022-06-20] MEDS: COLLAGENASE CLOSTRIDIUM HIST. 30 GRAMS TUBE TP SCH (10:30)
[2022-06-20 10:34] LABS: HEMATOCRIT 26.9 % (32.4-45.2); HEMOGLOBIN 9.1 GM/dL (10.7-15.3); MEAN CELL VOLUME 79.5 fl (80-96); MEAN PLT VOLUME 6.8 fl (7.5-11.1); PLATELET COUNT 696 10^3/uL (134-434); RBC 3.38 M/mm3 (3.60-5.2); RDW 16.1 % (11.6-15.6); WHITE BLOOD COUNT 7.2 K/mm3 (4.0-10.0)
[2022-06-20 10:59] LABS: CALCIUM 8.7 mg/dL (8.5-10.1)
[2022-06-20 11:00] LABS: ALBUMIN 1.6 g/dl (3.4-5.0); BLOOD UREA NITROGEN 30.3 mg/dL (7-18)
[2022-06-20 11:03] LABS: CREATININE 0.5 mg/dL (0.55-1.3)
[2022-06-20 11:04] LABS: BILIRUBIN,TOTAL 0.4 mg/dL (0.2-1); TOT PROT 7.6 g/dl (6.4-8.2)
[2022-06-20 15:50] VITALS: BP 137/70; PULSE 62; RESP 18; TEMP 98.1
== END 2022-06-20 16:15 | DRG 393 ==
LOC: JER 00:30 → UNDOADMOB 06:53 → JERBED 06:53 → INTOOBSV 06:53 → JERBED 16:03 → J6S 17:28 → OBSVTOIN 06-19 09:31
PROVIDERS: ADMIT Internal Medicine; ATTEND Internal Medicine
DX: K94.20 Gastrostomy complication, unspecified (principal); L89.154 Pressure ulcer of sacral region, stage 4; L89.514 Pressure ulcer of right ankle, stage 4; U07.1 COVID-19; I69.351 Hemiplegia and hemiparesis following cerebral infarction affecting right dominant side; K92.2 Gastrointestinal hemorrhage, unspecified; L97.909 Non-pressure chronic ulcer of unspecified part of unspecified lower leg with unspecified severity; L02.219 Cutaneous abscess of trunk, unspecified; E87.1 Hypo-osmolality and hyponatremia; K94.23 Gastrostomy malfunction; Y83.9 Surgical procedure, unspecified as the cause of abnormal reaction of the patient, or of later complication, without mention of misadventure at the time of the procedure; R00.0 Tachycardia, unspecified; G30.9 Alzheimer's disease, unspecified; I10 Essential (primary) hypertension; F02.80 Dementia in other diseases classified elsewhere, unspecified severity, without behavioral disturbance, psychotic disturbance, mood disturbance, and anxiety; R74.01 Elevation of levels of liver transaminase levels; K76.0 Fatty (change of) liver, not elsewhere classified; E78.00 Pure hypercholesterolemia, unspecified; L89.316 Pressure-induced deep tissue damage of right buttock; M19.90 Unspecified osteoarthritis, unspecified site; R94.5 Abnormal results of liver function studies; D47.3 Essential (hemorrhagic) thrombocythemia; D64.9 Anemia, unspecified; E78.5 Hyperlipidemia, unspecified; K59.00 Constipation, unspecified; K83.8 Other specified diseases of biliary tract; K80.20 Calculus of gallbladder without cholecystitis without obstruction
CPT/HCPCS: 0241U-QW; 36415; 71275-TC; 74018-TC-FY; 74176-TC; 74177-TC; 76705-TC; 80053; 81003; 82550; 82553; 82962; 83735; 84100; 84484; 85025; 85027; 85610; 85730; 86709; 86803; 87040; 87086; 87340; 87517; 93005; 93010; 93926-TC; 97161-GP; 99285-25; G0378; Q9967

== ENCOUNTER 2022-10-30 02:33 | Inpatient (IN) | payer OTHER ==
[2022-10-30] MEDS ORDERED: SODIUM CHLORIDE 0.9% 500 ML INFUS.BAG IV ONE (03:05)
[2022-10-30] MEDS ORDERED: ACETAMINOPHEN 1000 MG/100 ML BAG IVPB ONE (03:07)
[2022-10-30 03:57] LABS: URINE APPEARANCE CLEAR; URINE BILIRUBIN NEGATIVE (NEGATIVE); URINE COLOR YELLOW; URINE GLUCOSE (UA) NEGATIVE (NEGATIVE); URINE KETONE NEGATIVE (NEGATIVE); URINE LEUK ESTERASE NEGATIVE (NEGATIVE); URINE NITRITE NEGATIVE (NEGATIVE); URINE PROTEIN NEGATIVE (NEGATIVE)
[2022-10-30] MEDS ORDERED: ACETAMINOPHEN INJECTION 100 ML IVPB ONE (04:18)
[2022-10-30] MEDS ORDERED: VANCOMYCIN 1 GM in D5W (PRE-DOCKED) 1,000 MG/250 ML (RESTRICTED TO ID ONLY IVPB ONE (04:57)
[2022-10-30] MEDS ORDERED: PIPERACILLIN/TAZOB 3.375 GM 3.375 GM in DEXTROSE 5%-WATER - 50 ML IVPB ONE (04:58)
[2022-10-30] MEDS ORDERED: PIPERACILLIN/TAZOB 3.375 GM 3.375 GM/50 ML BAG IVPB ONE ×3 (05:05→17:24)
[2022-10-30] MEDS ORDERED: VANCOMYCIN/WATER FOR INJ (PEG) 1,000 MG/200 ML BAG IVPB ONE (05:05)
[2022-10-30 05:18] LABS: VENOUS BASE EXCESS -0.5 mmol/L (-2-2); VENOUS PCO2 46.1 mmHg (38-52); VENOUS PH 7.359 (7.310-7.410)
[2022-10-30 05:35] LABS: HEMATOCRIT 37.8 % (32.4-45.2); HEMOGLOBIN 12.1 GM/dL (10.7-15.3); MEAN CELL VOLUME 84.2 fl (80-96); MEAN PLT VOLUME 8.9 fl (7.5-11.1); PLATELET COUNT 426 10^3/uL (134-434); RBC 4.49 M/mm3 (3.60-5.2); RDW 19.4 % (11.6-15.6); WHITE BLOOD COUNT 14.7 K/mm3 (4.0-10.0)
[2022-10-30 05:37] LABS: POTASSIUM 4.2 mmol/L (3.5-5.1)
[2022-10-30 05:39] LABS: BLOOD UREA NITROGEN 30.8 mg/dL (7-18); CALCIUM 9.8 mg/dL (8.5-10.1); INR 1.26 (0.83-1.09); PROTHROMBIN TIME (PATIENT) 14.6 SEC (9.7-13.0)
[2022-10-30 05:40] LABS: ALBUMIN 2.8 g/dl (3.4-5.0)
[2022-10-30 05:42] LABS: ACTIVATED PTT 28.5 SECONDS (25.2-36.5)
[2022-10-30 05:43] LABS: CREATININE 0.7 mg/dL (0.55-1.3)
[2022-10-30 05:44] LABS: BILIRUBIN,TOTAL 0.5 mg/dL (0.2-1); TOT PROT 8.5 g/dl (6.4-8.2)
[2022-10-30] MEDS ORDERED: VANCOMYCIN 1 GM/200 ML PREMIX BAG (RESTRICTED TO ID ONLY) IVPB ONE (06:00)
[2022-10-30 09:01] LABS: ANISOCYTOSIS 2+; MACROCYTOSIS 1+
[2022-10-30] MEDS ORDERED: ACETAMINOPHEN 1000 MG/100 ML BAG IVPB PRN (09:32)
[2022-10-30] MEDS ORDERED: ENOXAPARIN NA (PORCINE) 40 MG/0.4 ML DISP.SYRIN SQ ONE (09:41)
[2022-10-30] MEDS ORDERED: PIPERACILLIN/TAZOB 3.375 GM 3.375 GM in DEXTROSE 5%-WATER - 50 ML IVPB SCH ×2 (10:00→14:00)
[2022-10-30] MEDS ORDERED: VANCOMYCIN 1 GM in D5W (PRE-DOCKED) 1,000 MG/250 ML (RESTRICTED TO ID ONLY IVPB SCH (10:00)
[2022-10-30] MEDS ORDERED: ENOXAPARIN NA (PORCINE) 40 MG/0.4 ML DISP.SYRIN SQ SCH (10:00)
[2022-10-30] MEDS ORDERED: ACETAMINOPHEN 325 MG TABLET (FP) PO PRN (11:06)
[2022-10-30] MEDS ORDERED: PATIENT'S OWN MEDICATION (NON-FORMULARY) (Ferrous Sulfate [Ferrous Sulfate] 325 MG Tablet) GT SCH (11:15)
[2022-10-30] MEDS: FOLIC ACID 1 MG TABLET (FP) GT SCH (12:59)
[2022-10-30] MEDS: ASPIRIN 81 MG CHEWABLE TABLETS GT SCH (12:59)
[2022-10-30] MEDS: APIXABAN 2.5 MG TABLET GT SCH ×2 (12:59→22:22)
[2022-10-30] MEDS: FAMOTIDINE 40 MG/5 ML ORAL SUSPENSION GT SCH (13:00)
[2022-10-30] MEDS: hydrALAZINE HCL 25 MG TABLET (FP) GT SCH ×2 (13:00→22:16)
[2022-10-30] MEDS ORDERED: FAMOTIDINE 20 MG TABLET ONE (13:02)
[2022-10-30] MEDS ORDERED: FERROUS SO4 325 MG TABLET (FP) ONE (13:03)
[2022-10-30] MEDS: PIPERACILLIN/TAZOB 3.375 GM 3.375 GM in DEXTROSE 5%-WATER - 50 ML IVPB SCH (17:24)
[2022-10-30] MEDS: ASCORBIC ACID 500 MG TABLET (FP) GT SCH (22:13)
[2022-10-30] MEDS: ATORVASTATIN CA 20 MG TABLET (FP) GT SCH (22:13)
[2022-10-30] MEDS: METOPROLOL TARTRATE 25 MG TABLET (FP) GT SCH (22:15)
[2022-10-31] MEDS: PIPERACILLIN/TAZOB 3.375 GM 3.375 GM in DEXTROSE 5%-WATER - 50 ML IVPB SCH ×3 (04:06→17:17)
[2022-10-31] MEDS ORDERED: VANCOMYCIN 1 GM/200 ML PREMIX BAG (RESTRICTED TO ID ONLY) IVPB ONE (06:00)
[2022-10-31] MEDS: LATANOPROST 0.005% OPHTH SOLN 2.5ML BOTTLE OU SCH ×2 (07:06→22:07)
[2022-10-31] MEDS: hydrALAZINE HCL 25 MG TABLET (FP) GT SCH ×3 (07:07→22:06)
[2022-10-31 07:49] LABS: BASO % 0.6 % (0-2.0); EOS % 3.1 % (0-4.5); HEMATOCRIT 30.5 % (32.4-45.2); HEMOGLOBIN 9.6 GM/dL (10.7-15.3); LYMPH % 8.6 % (8-40); MCH 26.4 pg (25.7-33.7); MCHC 31.4 g/dl (32.0-36.0); MEAN CELL VOLUME 84.2 fl (80-96); MEAN PLT VOLUME 8.6 fl (7.5-11.1); MONO % 4.6 % (3.8-10.2); NEUT % 83.1 % (42.8-82.8); PLATELET COUNT 345 10^3/uL (134-434); RBC 3.62 M/mm3 (3.60-5.2); RDW 18.9 % (11.6-15.6); WHITE BLOOD COUNT 11.2 K/mm3 (4.0-10.0)
[2022-10-31 08:21] LABS: POTASSIUM 3.5 mmol/L (3.5-5.1)
[2022-10-31 08:23] LABS: CALCIUM 9.2 mg/dL (8.5-10.1); MAGNESIUM 2.1 mg/dL (1.8-2.4)
[2022-10-31 08:25] LABS: BLOOD UREA NITROGEN 26.6 mg/dL (7-18)
[2022-10-31 08:26] LABS: PHOSPHOROUS 2.7 mg/dL (2.5-4.9)
[2022-10-31 08:27] LABS: CREATININE 0.4 mg/dL (0.55-1.3)
[2022-10-31 08:28] LABS: BILIRUBIN,TOTAL 0.5 mg/dL (0.2-1); TOT PROT 6.8 g/dl (6.4-8.2)
[2022-10-31 08:36] LABS: ALBUMIN 2.2 g/dl (3.4-5.0)
[2022-10-31] MEDS: FAMOTIDINE 40 MG/5 ML ORAL SUSPENSION GT SCH (10:04)
[2022-10-31] MEDS: FERROUS SO4 300 MG/5 ML ORAL SOLN UNIT DOSE CUPS GT SCH (10:04)
[2022-10-31] MEDS: CHOLECALCIFEROL (VIT D3) 1,000 UNIT (25 MCG) TABLET GT SCH (10:04)
[2022-10-31] MEDS: ASCORBIC ACID 500 MG TABLET (FP) GT SCH ×2 (10:04→22:06)
[2022-10-31] MEDS: ASPIRIN 81 MG CHEWABLE TABLETS GT SCH (10:04)
[2022-10-31] MEDS: METOPROLOL TARTRATE 25 MG TABLET (FP) GT SCH ×2 (10:04→22:06)
[2022-10-31] MEDS: APIXABAN 2.5 MG TABLET GT SCH ×2 (10:04→22:06)
[2022-10-31] MEDS: FOLIC ACID 1 MG TABLET (FP) GT SCH (10:04)
[2022-10-31 14:05] VITALS: BMI 20.3
[2022-10-31] MEDS: AMINO ACIDS/PROTEIN HYDROLYS 30 ML LIQUID.PKT GT SCH (17:17)
[2022-10-31] MEDS: ATORVASTATIN CA 20 MG TABLET (FP) GT SCH (22:00)
[2022-11-01] MEDS: PIPERACILLIN/TAZOB 3.375 GM 3.375 GM in DEXTROSE 5%-WATER - 50 ML IVPB SCH ×3 (02:00→17:04)
[2022-11-01] MEDS: hydrALAZINE HCL 25 MG TABLET (FP) GT SCH ×3 (06:13→21:46)
[2022-11-01] MEDS ORDERED: MULTIVIT-MINERALS ORAL LIQUID GT SCH (10:00)
[2022-11-01] MEDS: CHOLECALCIFEROL (VIT D3) 1,000 UNIT (25 MCG) TABLET GT SCH (10:16)
[2022-11-01] MEDS: AMINO ACIDS/PROTEIN HYDROLYS 30 ML LIQUID.PKT GT SCH ×2 (10:16→16:31)
[2022-11-01] MEDS: ASPIRIN 81 MG CHEWABLE TABLETS GT SCH (10:16)
[2022-11-01] MEDS: APIXABAN 2.5 MG TABLET GT SCH ×2 (10:16→21:46)
[2022-11-01] MEDS: ASCORBIC ACID 500 MG TABLET (FP) GT SCH ×2 (10:16→21:46)
[2022-11-01] MEDS: METOPROLOL TARTRATE 25 MG TABLET (FP) GT SCH ×2 (10:16→21:46)
[2022-11-01] MEDS: FAMOTIDINE 40 MG/5 ML ORAL SUSPENSION GT SCH (10:17)
[2022-11-01] MEDS: FOLIC ACID 1 MG TABLET (FP) GT SCH (10:17)
[2022-11-01] MEDS: FERROUS SO4 300 MG/5 ML ORAL SOLN UNIT DOSE CUPS GT SCH (10:17)
[2022-11-01] MEDS ORDERED: SODIUM HYPOCHLORITE 0.25%- 473 ML BULK BOTTLE TP SCH (17:00)
[2022-11-01] MEDS: LATANOPROST 0.005% OPHTH SOLN 2.5ML BOTTLE OU SCH (21:46)
[2022-11-01] MEDS: ATORVASTATIN CA 20 MG TABLET (FP) GT SCH (21:46)
[2022-11-02] MEDS ORDERED: ACETAMINOPHEN 325 MG TABLET (FP) PO PRN (01:05)
[2022-11-02] MEDS: PIPERACILLIN/TAZOB 3.375 GM 3.375 GM in DEXTROSE 5%-WATER - 50 ML IVPB SCH ×3 (02:45→17:07)
[2022-11-02] MEDS: hydrALAZINE HCL 25 MG TABLET (FP) GT SCH ×3 (06:08→22:40)
[2022-11-02 08:42] LABS: BASO % 0.4 % (0-2.0); EOS % 4.1 % (0-4.5); HEMATOCRIT 31.4 % (32.4-45.2); LYMPH % 18.5 % (8-40); MCH 26.9 pg (25.7-33.7); MEAN PLT VOLUME 8.7 fl (7.5-11.1); MONO % 9.6 % (3.8-10.2); NEUT % 67.4 % (42.8-82.8); PLATELET COUNT 340 10^3/uL (134-434); RBC 3.73 M/mm3 (3.60-5.2); WHITE BLOOD COUNT 5.9 K/mm3 (4.0-10.0)
[2022-11-02 09:07] LABS: POTASSIUM 3.3 mmol/L (3.5-5.1)
[2022-11-02 09:09] LABS: BLOOD UREA NITROGEN 14.5 mg/dL (7-18); CALCIUM 8.8 mg/dL (8.5-10.1)
[2022-11-02 09:10] LABS: ALBUMIN 2.1 g/dl (3.4-5.0); MAGNESIUM 1.9 mg/dL (1.8-2.4)
[2022-11-02 09:13] LABS: CREATININE 0.4 mg/dL (0.55-1.3)
[2022-11-02 09:14] LABS: BILIRUBIN,TOTAL 0.4 mg/dL (0.2-1); TOT PROT 6.8 g/dl (6.4-8.2)
[2022-11-02] MEDS: FOLIC ACID 1 MG TABLET (FP) GT SCH (09:48)
[2022-11-02] MEDS: ASPIRIN 81 MG CHEWABLE TABLETS GT SCH (09:48)
[2022-11-02] MEDS: METOPROLOL TARTRATE 25 MG TABLET (FP) GT SCH ×2 (09:48→22:41)
[2022-11-02] MEDS: AMINO ACIDS/PROTEIN HYDROLYS 30 ML LIQUID.PKT GT SCH ×2 (09:48→17:07)
[2022-11-02] MEDS: CHOLECALCIFEROL (VIT D3) 1,000 UNIT (25 MCG) TABLET GT SCH (09:49)
[2022-11-02] MEDS: ASCORBIC ACID 500 MG TABLET (FP) GT SCH ×2 (09:49→17:07)
[2022-11-02] MEDS: APIXABAN 2.5 MG TABLET GT SCH ×2 (09:49→17:07)
[2022-11-02] MEDS: SODIUM HYPOCHLORITE 0.25%- 473 ML BULK BOTTLE TP SCH (09:50)
[2022-11-02] MEDS: FAMOTIDINE 40 MG/5 ML ORAL SUSPENSION GT SCH (09:52)
[2022-11-02] MEDS ORDERED: POTASSIUM CHLORIDE ORAL LIQUID 20 MEQ/15 ML GT ONE (10:20)
[2022-11-02] MEDS: MULTIVIT-MINERALS ORAL LIQUID GT SCH (12:00)
[2022-11-02] MEDS: FERROUS SO4 300 MG/5 ML ORAL SOLN UNIT DOSE CUPS GT SCH (12:14)
[2022-11-02] MEDS: ATORVASTATIN CA 20 MG TABLET (FP) GT SCH (22:40)
[2022-11-02] MEDS: LATANOPROST 0.005% OPHTH SOLN 2.5ML BOTTLE OU SCH (22:41)
[2022-11-03] MEDS: PIPERACILLIN/TAZOB 3.375 GM 3.375 GM in DEXTROSE 5%-WATER - 50 ML IVPB SCH ×3 (01:33→17:29)
[2022-11-03] MEDS: hydrALAZINE HCL 25 MG TABLET (FP) GT SCH ×3 (05:14→21:58)
[2022-11-03] MEDS: ASCORBIC ACID 500 MG TABLET (FP) GT SCH ×2 (09:02→17:29)
[2022-11-03] MEDS: AMINO ACIDS/PROTEIN HYDROLYS 30 ML LIQUID.PKT GT SCH ×2 (09:02→17:29)
[2022-11-03] MEDS: APIXABAN 2.5 MG TABLET GT SCH ×2 (09:02→17:29)
[2022-11-03 09:08] LABS: BASO % 0.3 % (0-2.0); EOS % 4.8 % (0-4.5); HEMATOCRIT 30.8 % (32.4-45.2); HEMOGLOBIN 10.1 GM/dL (10.7-15.3); LYMPH % 15.9 % (8-40); MCHC 32.9 g/dl (32.0-36.0); MEAN CELL VOLUME 82.1 fl (80-96); MEAN PLT VOLUME 8.4 fl (7.5-11.1); PLATELET COUNT 340 10^3/uL (134-434); RBC 3.75 M/mm3 (3.60-5.2); RDW 18.6 % (11.6-15.6); WHITE BLOOD COUNT 5.9 K/mm3 (4.0-10.0)
[2022-11-03 09:15] LABS: POTASSIUM 3.7 mmol/L (3.5-5.1)
[2022-11-03 09:17] LABS: BLOOD UREA NITROGEN 17.7 mg/dL (7-18)
[2022-11-03 09:20] LABS: CREATININE 0.4 mg/dL (0.55-1.3)
[2022-11-03 09:22] LABS: BILIRUBIN,TOTAL 0.3 mg/dL (0.2-1); TOT PROT 6.6 g/dl (6.4-8.2)
[2022-11-03] MEDS ORDERED: PIPERACILLIN/TAZOBACTAM 3.375 GM VIAL IVPB ONE (11:03)
[2022-11-03] MEDS: CHOLECALCIFEROL (VIT D3) 1,000 UNIT (25 MCG) TABLET GT SCH (11:06)
[2022-11-03] MEDS: ASPIRIN 81 MG CHEWABLE TABLETS GT SCH (11:06)
[2022-11-03] MEDS: METOPROLOL TARTRATE 25 MG TABLET (FP) GT SCH ×2 (11:06→21:58)
[2022-11-03] MEDS: FOLIC ACID 1 MG TABLET (FP) GT SCH (11:06)
[2022-11-03] MEDS: MULTIVIT-MINERALS ORAL LIQUID GT SCH (11:07)
[2022-11-03] MEDS: FAMOTIDINE 40 MG/5 ML ORAL SUSPENSION GT SCH (11:07)
[2022-11-03] MEDS: FERROUS SO4 300 MG/5 ML ORAL SOLN UNIT DOSE CUPS GT SCH (11:08)
[2022-11-03] MEDS: COLLAGENASE CLOSTRIDIUM HIST. 30 GRAMS TUBE TP SCH (16:50)
[2022-11-03] MEDS: SODIUM HYPOCHLORITE 0.25%- 473 ML BULK BOTTLE TP SCH (18:53)
[2022-11-03] MEDS: ATORVASTATIN CA 20 MG TABLET (FP) GT SCH (21:58)
[2022-11-03] MEDS: LATANOPROST 0.005% OPHTH SOLN 2.5ML BOTTLE OU SCH (21:59)
[2022-11-04] MEDS ORDERED: PIPERACILLIN/TAZOBACTAM 3.375 GM VIAL IVPB ONE (01:31)
[2022-11-04] MEDS: PIPERACILLIN/TAZOB 3.375 GM 3.375 GM in DEXTROSE 5%-WATER - 50 ML IVPB SCH ×2 (02:01→09:09)
[2022-11-04 05:20] VITALS: RESP 18
[2022-11-04] MEDS: hydrALAZINE HCL 25 MG TABLET (FP) GT SCH ×2 (05:22→13:24)
[2022-11-04] MEDS: AMINO ACIDS/PROTEIN HYDROLYS 30 ML LIQUID.PKT GT SCH ×2 (07:33→17:40)
[2022-11-04] MEDS: CHOLECALCIFEROL (VIT D3) 1,000 UNIT (25 MCG) TABLET GT SCH (09:08)
[2022-11-04] MEDS: ASPIRIN 81 MG CHEWABLE TABLETS GT SCH (09:08)
[2022-11-04] MEDS: ASCORBIC ACID 500 MG TABLET (FP) GT SCH ×2 (09:08→17:40)
[2022-11-04] MEDS: METOPROLOL TARTRATE 25 MG TABLET (FP) GT SCH (09:08)
[2022-11-04] MEDS: APIXABAN 2.5 MG TABLET GT SCH ×2 (09:08→17:40)
[2022-11-04] MEDS: MULTIVIT-MINERALS ORAL LIQUID GT SCH (09:09)
[2022-11-04] MEDS: FAMOTIDINE 40 MG/5 ML ORAL SUSPENSION GT SCH (09:09)
[2022-11-04] MEDS: FERROUS SO4 300 MG/5 ML ORAL SOLN UNIT DOSE CUPS GT SCH (09:10)
[2022-11-04 09:33] LABS: BASO % 0.6 % (0-2.0); EOS % 5.1 % (0-4.5); HEMATOCRIT 30.5 % (32.4-45.2); HEMOGLOBIN 9.6 GM/dL (10.7-15.3); MCH 26.5 pg (25.7-33.7); MCHC 31.7 g/dl (32.0-36.0); MEAN CELL VOLUME 83.6 fl (80-96); MONO % 10.6 % (3.8-10.2); NEUT % 64.7 % (42.8-82.8); PLATELET COUNT 385 10^3/uL (134-434); RBC 3.64 M/mm3 (3.60-5.2); RDW 18.5 % (11.6-15.6); WHITE BLOOD COUNT 6.3 K/mm3 (4.0-10.0)
[2022-11-04 09:52] LABS: POTASSIUM 4.1 mmol/L (3.5-5.1)
[2022-11-04 09:57] LABS: ALBUMIN 2.1 g/dl (3.4-5.0)
[2022-11-04 09:58] LABS: BLOOD UREA NITROGEN 21.2 mg/dL (7-18)
[2022-11-04 10:01] LABS: CREATININE 0.4 mg/dL (0.55-1.3)
[2022-11-04 10:03] LABS: BILIRUBIN,TOTAL 0.2 mg/dL (0.2-1); TOT PROT 6.5 g/dl (6.4-8.2)
[2022-11-04] MEDS: FOLIC ACID 1 MG TABLET (FP) GT SCH (10:10)
[2022-11-04] MEDS ORDERED: BACITRACIN ZINC 15 GM TUBE TOPICAL OINTMENT TP SCH (11:30)
[2022-11-04] MEDS ORDERED: ERTAPENEM SODIUM 1 GM in SODIUM CHLORIDE 50 ML IVPB SCH (11:30)
[2022-11-04] MEDS: SODIUM HYPOCHLORITE 0.25%- 473 ML BULK BOTTLE TP SCH (11:46)
[2022-11-04] MEDS: COLLAGENASE CLOSTRIDIUM HIST. 30 GRAMS TUBE TP SCH (11:47)
[2022-11-04 15:25] VITALS: BP 128/56; PULSE 82; TEMP 98.3
== END 2022-11-04 18:35 | DRG 871 ==
LOC: JER 02:33 → JERBED 06:37 → J4W 18:46 → J8W 11-02 01:02
PROVIDERS: ADMIT Internal Medicine; ATTEND Nurse Practitioner Family
DX: A41.89 Other specified sepsis (principal); J69.0 Pneumonitis due to inhalation of food and vomit; L89.154 Pressure ulcer of sacral region, stage 4; R53.2 Functional quadriplegia; K94.23 Gastrostomy malfunction; I69.351 Hemiplegia and hemiparesis following cerebral infarction affecting right dominant side; N17.9 Acute kidney failure, unspecified; Y84.8 Other medical procedures as the cause of abnormal reaction of the patient, or of later complication, without mention of misadventure at the time of the procedure; G30.9 Alzheimer's disease, unspecified; F02.80 Dementia in other diseases classified elsewhere, unspecified severity, without behavioral disturbance, psychotic disturbance, mood disturbance, and anxiety; I10 Essential (primary) hypertension; I69.391 Dysphagia following cerebral infarction; E78.5 Hyperlipidemia, unspecified; R62.7 Adult failure to thrive; Z68.20 Body mass index [BMI] 20.0-20.9, adult
CPT/HCPCS: 0241U-QW; 36415; 71045-TC-FY; 74177-TC; 80053; 81003; 82803; 83605; 83735; 84100; 84484; 85025; 85610; 85730; 86850; 86900; 86901; 87040; 87070; 87086; 87186; 87205; 87635; 93005; 93010; 99285-25; Q9967

== ENCOUNTER 2023-06-18 14:10 | Inpatient (IN) | payer OTHER ==
[2023-06-18 16:14] LABS: VENOUS BASE EXCESS 2.1 mmol/L (-2-2); VENOUS O2 SATURATION 32.2 % (70-80); VENOUS PCO2 45.9 mmHg (38-52); VENOUS PH 7.395 (7.310-7.410)
[2023-06-18 16:28] LABS: HEMOGLOBIN 8.4 GM/dL (10.7-15.3); INR 1.44 (0.83-1.09); MCH 23.9 pg (25.7-33.7); MCHC 31.3 g/dl (32.0-36.0); MEAN CELL VOLUME 76.5 fl (80-96); MEAN PLT VOLUME 8.7 fl (7.5-11.1); PLATELET COUNT 390 10^3/uL (134-434); PROTHROMBIN TIME (PATIENT) 16.6 SEC (9.7-13.0); RBC 3.53 M/mm3 (3.60-5.2); RDW 17.4 % (11.6-15.6); WHITE BLOOD COUNT 4.9 K/mm3 (4.0-10.0)
[2023-06-18 16:31] LABS: ACTIVATED PTT 22.7 SECONDS (25.2-36.5)
[2023-06-18] MEDS ORDERED: ALBUTEROL SO4 2.5/IPRATROPIUM 0.5 INH SOL 3 ML VIAL.NEB. NEB ONE ×2 (16:38→17:28)
[2023-06-18] MEDS ORDERED: ACETAMINOPHEN INJECTION 100 ML IVPB ONE (16:38)
[2023-06-18 16:39] LABS: POTASSIUM 4.9 mmol/L (3.5-5.1)
[2023-06-18] MEDS ORDERED: PIPERACILLIN/TAZOB 4.5 GM 4.5 GM/100 ML BAG IVPB ONE (16:39)
[2023-06-18 16:42] LABS: ALBUMIN 2.5 g/dl (3.4-5.0); BLOOD UREA NITROGEN 25.5 mg/dL (7-18)
[2023-06-18 16:46] LABS: BILIRUBIN,TOTAL 0.3 mg/dL (0.2-1); CREATININE 0.6 mg/dL (0.55-1.3); TOT PROT 7.6 g/dl (6.4-8.2)
[2023-06-18] MEDS: ACETAMINOPHEN 1000 MG/100 ML BAG IVPB ONE (16:53)
[2023-06-18] MEDS: PIPERACILLIN/TAZOB 4.5 GM 4.5 GM in DEXTROSE 5%-WATER 100 ML IVPB ONE (16:53)
[2023-06-18] MEDS: ALBUTEROL SO4 2.5/IPRATROPIUM 0.5 INH SOL 3 ML VIAL.NEB. NEB ONE ×3 (16:53→17:35)
[2023-06-18] MEDS ORDERED: OSELTAMIVIR PHOSPHATE 75 MG CAPSULE ONE (17:28)
[2023-06-18] MEDS ORDERED: VANCOMYCIN 1 GRAM (PRE-DOCKED) 1,000 MG/250 ML BAG IVPB ONE (17:29)
[2023-06-18] MEDS: VANCOMYCIN 1,000 MG in DEXTROSE 5%-WATER - 250 ML IVPB ONE (17:35)
[2023-06-18] MEDS: OSELTAMIVIR PHOSPHATE 75 MG CAPSULE PO ONE (17:36)
[2023-06-18 18:14] LABS: ANISOCYTOSIS 1+; MACROCYTOSIS 0; PLATELET ESTIMATE NORMAL
[2023-06-18 21:17] LABS: EPI CELLS >36 /uL (0-25.1); HYALINE CASTS 2 /uL (0-3.1); URINE APPEARANCE CLEAR; URINE BACTERIA 12 /uL (0-1359); URINE BILIRUBIN NEGATIVE (NEGATIVE); URINE COLOR YELLOW; URINE GLUCOSE (UA) NEGATIVE (NEGATIVE); URINE KETONE NEGATIVE (NEGATIVE); URINE LEUK ESTERASE TRACE (NEGATIVE); URINE NITRITE NEGATIVE (NEGATIVE); URINE PROTEIN 1+ (NEGATIVE); URINE UROBILINOGEN 0.2 mg/dL (0.2-1.0); URINE WBC 91 /uL (0-25.8)
[2023-06-18 23:20] LABS: URINE RBC 106.5 /uL (0-23.9)
[2023-06-19] MEDS: methylPREDNISolone NA SUCC 40 MG/1 ML VIAL IVPUSH SCH (00:34)
[2023-06-19] MEDS ORDERED: methylPREDNISolone NA SUCC 40 MG/1 ML VIAL ONE (03:23)
[2023-06-19] MEDS ORDERED: ALBUTEROL SO4 2.5/IPRATROPIUM 0.5 INH SOL 3 ML VIAL.NEB. NEB SCH (08:00)
[2023-06-19] MEDS: ALBUTEROL SO4 2.5/IPRATROPIUM 0.5 INH SOL 3 ML VIAL.NEB. NEB SCH (08:18)
[2023-06-19] MEDS: hydrALAZINE HCL 25 MG TABLET (FP) GT SCH (08:59)
[2023-06-19] MEDS: APIXABAN 2.5 MG TABLET GT SCH (09:04)
[2023-06-19] MEDS: FOLIC ACID 1 MG TABLET (FP) GT SCH (09:04)
[2023-06-19] MEDS: METOPROLOL TARTRATE 25 MG TABLET (FP) GT SCH (09:04)
[2023-06-19 09:17] LABS: HEMATOCRIT 22.5 % (32.4-45.2); HEMOGLOBIN 7.2 GM/dL (10.7-15.3); MCH 24.3 pg (25.7-33.7); MCHC 31.8 g/dl (32.0-36.0); MEAN CELL VOLUME 76.6 fl (80-96); MEAN PLT VOLUME 8.8 fl (7.5-11.1); PLATELET COUNT 356 10^3/uL (134-434); RBC 2.94 M/mm3 (3.60-5.2); RDW 17.6 % (11.6-15.6); WHITE BLOOD COUNT 4.2 K/mm3 (4.0-10.0)
[2023-06-19] MEDS ORDERED: OSELTAMIVIR PHOSPHATE 45 MG CAPSULE GT SCH (10:00)
[2023-06-19] MEDS ORDERED: FAMOTIDINE 40 MG/5 ML ORAL SUSPENSION GT SCH (10:00)
[2023-06-19] MEDS ORDERED: OSELTAMIVIR PHOSPHATE 45 MG CAPSULE PO SCH (10:00)
[2023-06-19 10:04] LABS: POTASSIUM 4.5 mmol/L (3.5-5.1)
[2023-06-19 10:08] LABS: ALBUMIN 2.2 g/dl (3.4-5.0); BLOOD UREA NITROGEN 22.6 mg/dL (7-18); CALCIUM 8.9 mg/dL (8.5-10.1); MAGNESIUM 1.9 mg/dL (1.8-2.4)
[2023-06-19 10:10] LABS: CREATININE 0.5 mg/dL (0.55-1.3); PHOSPHOROUS 3.7 mg/dL (2.5-4.9)
[2023-06-19 10:12] LABS: BILIRUBIN,TOTAL 0.3 mg/dL (0.2-1); TOT PROT 7.1 g/dl (6.4-8.2)
[2023-06-19] MEDS: OSELTAMIVIR PHOSPHATE 75 MG CAPSULE GT ONE (11:28)
[2023-06-19] MEDS ORDERED: ATORVASTATIN CA 10 MG TABLET (FP) GT SCH (22:00)
[2023-06-19] MEDS: ASCORBIC ACID 500 MG TABLET (FP) PO SCH (22:43)
[2023-06-19] MEDS: BACITRACIN ZINC 15 GM TUBE TOPICAL OINTMENT TP SCH (22:44)
[2023-06-20 09:39] LABS: BASO % 0.2 % (0-2.0); EOS % 0.1 % (0-4.5); HEMATOCRIT 25.4 % (32.4-45.2); HEMOGLOBIN 8.2 GM/dL (10.7-15.3); LYMPH % 5.7 % (8-40); MCH 24.3 pg (25.7-33.7); MCHC 32.4 g/dl (32.0-36.0); MEAN CELL VOLUME 75.1 fl (80-96); MEAN PLT VOLUME 8.8 fl (7.5-11.1); MONO % 4.5 % (3.8-10.2); NEUT % 89.5 % (42.8-82.8); PLATELET COUNT 415 10^3/uL (134-434); RBC 3.38 M/mm3 (3.60-5.2); RDW 17.5 % (11.6-15.6); WHITE BLOOD COUNT 4.6 K/mm3 (4.0-10.0)
[2023-06-20 09:49] LABS: POTASSIUM 3.7 mmol/L (3.5-5.1)
[2023-06-20 10:10] LABS: ALBUMIN 2.4 g/dl (3.4-5.0); BLOOD UREA NITROGEN 32.9 mg/dL (7-18); CALCIUM 9.2 mg/dL (8.5-10.1); CREATININE 0.6 mg/dL (0.55-1.3)
[2023-06-20 10:12] LABS: TOT PROT 7.5 g/dl (6.4-8.2)
[2023-06-20] MEDS: AMOX TR/POTASSIUM CLAVULANATE 250 MG/5 ML BOTTLE GT SCH (10:13)
[2023-06-20] MEDS: OSELTAMIVIR PHOSPHATE 6 MG/1 ML GT SCH (10:13)
[2023-06-20 10:14] LABS: BILIRUBIN,TOTAL 0.2 mg/dL (0.2-1)
[2023-06-20] MEDS: ZINC SULFATE 220 MG CAPSULE (FP) PO SCH (10:15)
[2023-06-20] MEDS: MULTIVITAMINS (DAILY MVI) TABLET (FP) PO SCH (10:15)
[2023-06-20 10:53] LABS: IRON SERUM 18 ug/dL (50-175)
[2023-06-20 10:55] LABS: TOTAL IRON BINDING CAPACITY 267 ug/dL (250-450)
[2023-06-20] MEDS ORDERED: SODIUM CHLORIDE 1,000 ML IV SCH (12:00)
[2023-06-20] MEDS: SODIUM CHLORIDE 1,000 ML IV SCH (12:39)
[2023-06-20] MEDS: SODIUM CHLORIDE 0.9% 500 ML INFUS.BAG IV ONE (14:13)
[2023-06-20] MEDS: ASCORBIC ACID 500 MG/5 ML UNIT DOSE CUP GT SCH (21:48)
[2023-06-21] MEDS: MULTIVIT-MINERALS ORAL LIQUID PO SCH (10:55)
[2023-06-21] MEDS: FAMOTIDINE 20 MG/2.5 ML ORAL LIQUID GT SCH (10:55)
[2023-06-21] MEDS: ZINC SULFATE 220 MG CAPSULE (FP) GT SCH (10:56)
[2023-06-21 11:10] LABS: HEMATOCRIT 23.6 % (32.4-45.2); HEMOGLOBIN 7.5 GM/dL (10.7-15.3); MCHC 31.8 g/dl (32.0-36.0); MEAN CELL VOLUME 75.5 fl (80-96); MEAN PLT VOLUME 8.6 fl (7.5-11.1); PLATELET COUNT 349 10^3/uL (134-434); RBC 3.12 M/mm3 (3.60-5.2); RDW 16.9 % (11.6-15.6); WHITE BLOOD COUNT 4.8 K/mm3 (4.0-10.0)
[2023-06-21] MEDS ORDERED: ACETAMINOPHEN 1000 MG/100 ML BAG IVPB PRN ×2 (11:11→11:29)
[2023-06-21] MEDS: LEVALBUTEROL HCL 0.31 MG/3 ML VIAL.NEB IH SCH (11:35)
[2023-06-21] MEDS: ACETYLCYSTEINE 20% 200MG/ML 4 ML VIAL *FOR ORAL / INH USE ONLY NEB SCH (11:35)
[2023-06-21 11:41] LABS: CHLORIDE 112 mmol/L (98-107); SODIUM 145 mmol/L (136-145)
[2023-06-21 11:45] LABS: ALBUMIN 2.3 g/dl (3.4-5.0); BLOOD UREA NITROGEN 29.8 mg/dL (7-18); CALCIUM 8.4 mg/dL (8.5-10.1); CO2 25 mmol/L (21-32); GLUCOSE,RANDOM 123 mg/dL (74-106)
[2023-06-21 11:48] LABS: CREATININE 0.5 mg/dL (0.55-1.3); SGOT/AST 20 U/L (15-37)
[2023-06-21 11:49] LABS: BILIRUBIN,TOTAL 0.2 mg/dL (0.2-1); SGPT/ALT 39 U/L (13-61); TOT PROT 6.6 g/dl (6.4-8.2)
[2023-06-21 11:50] LABS: ALK PHOS 111 U/L (45-117); ANION GAP 8 mmol/L (4-13); POTASSIUM 2.9 mmol/L (3.5-5.1)
[2023-06-21] MEDS: LACTATED RINGERS SOLUTION 1,000 ML/1,000 ML INFUS.BAG IV STA (12:00)
[2023-06-21] MEDS: KCL 10 MEQ IVPB 10 MEQ/100 ML INFUS.BAG IVPB SCH (13:57)
[2023-06-21] MEDS ORDERED: LEVALBUTEROL HCL 0.31 MG/3 ML VIAL.NEB IH SCH (14:00)
[2023-06-21] MEDS: POTASSIUM CHLORIDE TABS 20 MEQ TABLET.ER (FP) PO ONE (18:20)
[2023-06-21 22:23] LABS: BLOOD UREA NITROGEN 20.3 mg/dL (7-18); CALCIUM 8.1 mg/dL (8.5-10.1)
[2023-06-21 22:27] LABS: CREATININE 0.5 mg/dL (0.55-1.3)
[2023-06-22 09:34] LABS: HEMOGLOBIN 7.2 GM/dL (10.7-15.3); MCH 23.7 pg (25.7-33.7); MCHC 31.3 g/dl (32.0-36.0); MEAN CELL VOLUME 75.6 fl (80-96); MEAN PLT VOLUME 8.7 fl (7.5-11.1); PLATELET COUNT 332 10^3/uL (134-434); RBC 3.04 M/mm3 (3.60-5.2); RDW 16.7 % (11.6-15.6); WHITE BLOOD COUNT 3.3 K/mm3 (4.0-10.0)
[2023-06-22 10:04] LABS: POTASSIUM 4.1 mmol/L (3.5-5.1)
[2023-06-22 10:12] LABS: BLOOD UREA NITROGEN 16.5 mg/dL (7-18)
[2023-06-22 10:13] LABS: CALCIUM 7.9 mg/dL (8.5-10.1); MAGNESIUM 1.8 mg/dL (1.8-2.4)
[2023-06-22 10:18] LABS: CREATININE 0.3 mg/dL (0.55-1.3); PHOSPHOROUS 1.7 mg/dL (2.5-4.9)
[2023-06-22] MEDS: NAPH,MB-DB/K PH,MBDB POWDER PACKET PO SCH (11:07)
[2023-06-22] MEDS: methylPREDNISolone NA SUCC 40 MG/1 ML VIAL IVPUSH ONE (11:32)
[2023-06-22] MEDS: ALBUTEROL SO4 2.5/IPRATROPIUM 0.5 INH SOL 3 ML VIAL.NEB. NEB ONE (11:35)
[2023-06-23 09:57] LABS: BASO % 0.2 % (0-2.0); EOS % 0.1 % (0-4.5); HEMOGLOBIN 8.1 GM/dL (10.7-15.3); LYMPH % 28.1 % (8-40); MCH 23.6 pg (25.7-33.7); MCHC 31.3 g/dl (32.0-36.0); MEAN CELL VOLUME 75.4 fl (80-96); MEAN PLT VOLUME 8.8 fl (7.5-11.1); MONO % 9.4 % (3.8-10.2); NEUT % 62.2 % (42.8-82.8); PLATELET COUNT 390 10^3/uL (134-434); RBC 3.45 M/mm3 (3.60-5.2); WHITE BLOOD COUNT 4.6 K/mm3 (4.0-10.0)
[2023-06-23 10:17] LABS: POTASSIUM 3.5 mmol/L (3.5-5.1)
[2023-06-23 10:25] LABS: ALBUMIN 2.4 g/dl (3.4-5.0); BLOOD UREA NITROGEN 17.9 mg/dL (7-18); CALCIUM 8.9 mg/dL (8.5-10.1); MAGNESIUM 1.9 mg/dL (1.8-2.4)
[2023-06-23 10:27] LABS: CREATININE 0.5 mg/dL (0.55-1.3)
[2023-06-23 10:29] LABS: BILIRUBIN,TOTAL 0.3 mg/dL (0.2-1); TOT PROT 6.7 g/dl (6.4-8.2)
[2023-06-23] MEDS: ALBUTEROL SO4 2.5/IPRATROPIUM 0.5 INH SOL 3 ML VIAL.NEB. NEB ONE (15:20)
[2023-06-23] MEDS: MINERAL OIL/PET HY-PHL TOPICAL OINTMENT 454 GM JAR TP SCH (17:43)
[2023-06-23] MEDS: MINERAL OIL/PET HY-PHL TOPICAL OINTMENT 454 GM JAR TP ONE (17:45)
[2023-06-24] MEDS: ALBUTEROL SO4 2.5/IPRATROPIUM 0.5 INH SOL 3 ML VIAL.NEB. NEB ONE (01:28)
[2023-06-24 01:29] LABS: ARTERIAL BLD GAS O2 SATURATION 98.1 % (95-98); ARTERIAL BLOOD GAS PO2 99.1 mmHg (80-100); ARTERIAL BLOOD GAS pH 7.524 (7.350-7.450)
[2023-06-24 01:30] LABS: ALLENS TEST POSITIVE
[2023-06-24] MEDS: methylPREDNISolone NA SUCC 40 MG/1 ML VIAL IVPUSH SCH ×2 (01:55→12:21)
[2023-06-24] MEDS: FUROSEMIDE 40 MG/4 ML INJECTABLE VIAL IVPUSH ONE (02:46)
[2023-06-24 10:00] LABS: HEMATOCRIT 28.7 % (32.4-45.2); HEMOGLOBIN 8.8 GM/dL (10.7-15.3); MCH 23.1 pg (25.7-33.7); MCHC 30.6 g/dl (32.0-36.0); MEAN CELL VOLUME 75.5 fl (80-96); MEAN PLT VOLUME 8.9 fl (7.5-11.1); PLATELET COUNT 442 10^3/uL (134-434); RDW 17.7 % (11.6-15.6); WHITE BLOOD COUNT 5.8 K/mm3 (4.0-10.0)
[2023-06-24 10:22] LABS: ANISOCYTOSIS 0; MACROCYTOSIS 0
[2023-06-24 10:23] LABS: POTASSIUM 3.7 mmol/L (3.5-5.1)
[2023-06-24 10:31] LABS: CALCIUM 8.6 mg/dL (8.5-10.1)
[2023-06-24 10:32] LABS: ALBUMIN 2.6 g/dl (3.4-5.0); BLOOD UREA NITROGEN 28.9 mg/dL (7-18)
[2023-06-24 10:35] LABS: CREATININE 0.6 mg/dL (0.55-1.3); PHOSPHOROUS 2.4 mg/dL (2.5-4.9)
[2023-06-24 10:36] LABS: BILIRUBIN,TOTAL 0.3 mg/dL (0.2-1); TOT PROT 6.9 g/dl (6.4-8.2)
[2023-06-24] MEDS: PANTOPRAZOLE SODIUM 40 MG VIAL IVPUSH SCH (11:46)
[2023-06-24 11:55] LABS: INR 1.77 (0.83-1.09); PROTHROMBIN TIME (PATIENT) 20.4 SEC (9.7-13.0)
[2023-06-24 11:58] LABS: ACTIVATED PTT 28.2 SECONDS (25.2-36.5)
[2023-06-24] MEDS: SODIUM CHLORIDE 1,000 ML IV SCH ×2 (14:31→21:58)
[2023-06-24] MEDS ORDERED: PANTOPRAZOLE SODIUM 80 MG in SODIUM CHLORIDE 100 ML IVPB SCH (14:45)
[2023-06-24] MEDS: PANTOPRAZOLE SODIUM 40 MG VIAL IVPUSH ONE (14:53)
[2023-06-24 15:56] LABS: HEMATOCRIT 23.1 % (32.4-45.2); HEMOGLOBIN 7.3 GM/dL (10.7-15.3); LYMPH % 7.8 % (8-40); MCH 23.6 pg (25.7-33.7); MCHC 31.5 g/dl (32.0-36.0); MEAN CELL VOLUME 74.8 fl (80-96); MEAN PLT VOLUME 8.7 fl (7.5-11.1); MONO % 2.1 % (3.8-10.2); NEUT % 90.1 % (42.8-82.8); PLATELET COUNT 392 10^3/uL (134-434); RBC 3.08 M/mm3 (3.60-5.2); RDW 17.3 % (11.6-15.6); WHITE BLOOD COUNT 5.5 K/mm3 (4.0-10.0)
[2023-06-24] MEDS: PIPERACILLIN/TAZOB 3.375 GM 3.375 GM in DEXTROSE 5%-WATER - 50 ML IVPB SCH (16:14)
[2023-06-24] MEDS: PANTOPRAZOLE SODIUM 160 MG in SODIUM CHLORIDE 290 ML IVPB SCH (17:19)
[2023-06-24] MEDS ORDERED: FUROSEMIDE 40 MG/4 ML INJECTABLE VIAL IVPUSH ONE (19:30)
[2023-06-24] MEDS: METOPROLOL TARTRATE 25 MG TABLET (FP) GT SCH (23:18)
[2023-06-25] MEDS: FUROSEMIDE 40 MG/4 ML INJECTABLE VIAL IVPUSH ONE (02:00)
[2023-06-25 04:39] LABS: BASO % 0.1 % (0-2.0); EOS % 0.1 % (0-4.5); HEMATOCRIT 24.7 % (32.4-45.2); HEMOGLOBIN 8.2 GM/dL (10.7-15.3); LYMPH % 14.2 % (8-40); MCH 25.6 pg (25.7-33.7); MCHC 33.3 g/dl (32.0-36.0); MEAN PLT VOLUME 8.3 fl (7.5-11.1); MONO % 8.8 % (3.8-10.2); NEUT % 76.8 % (42.8-82.8); PLATELET COUNT 352 10^3/uL (134-434); RBC 3.21 M/mm3 (3.60-5.2); RDW 18.3 % (11.6-15.6); WHITE BLOOD COUNT 8.4 K/mm3 (4.0-10.0)
[2023-06-25] MEDS: SODIUM CHLORIDE 1,000 ML IV SCH (10:03)
[2023-06-25 10:56] LABS: BASO % 0.1 % (0-2.0); EOS % 0.4 % (0-4.5); HEMATOCRIT 25.3 % (32.4-45.2); HEMOGLOBIN 8.3 GM/dL (10.7-15.3); LYMPH % 14.7 % (8-40); MCH 25.2 pg (25.7-33.7); MCHC 32.7 g/dl (32.0-36.0); MEAN CELL VOLUME 77.1 fl (80-96); MEAN PLT VOLUME 8.6 fl (7.5-11.1); NEUT % 76.8 % (42.8-82.8); PLATELET COUNT 338 10^3/uL (134-434); RBC 3.29 M/mm3 (3.60-5.2); WHITE BLOOD COUNT 7.7 K/mm3 (4.0-10.0)
[2023-06-25 11:02] LABS: INR 1.44 (0.83-1.09); PROTHROMBIN TIME (PATIENT) 16.6 SEC (9.7-13.0)
[2023-06-25 11:20] LABS: CHLORIDE 110 mmol/L (98-107); SODIUM 145 mmol/L (136-145)
[2023-06-25 11:29] LABS: BLOOD UREA NITROGEN 31.3 mg/dL (7-18); CALCIUM 8.2 mg/dL (8.5-10.1); CO2 31 mmol/L (21-32); GLUCOSE,RANDOM 115 mg/dL (74-106)
[2023-06-25 11:32] LABS: CREATININE 0.5 mg/dL (0.55-1.3)
[2023-06-25 11:37] LABS: N-TERMINAL BNP 235.1 pg/ml (5-450)
[2023-06-25 11:42] LABS: ANION GAP 4 mmol/L (4-13); POTASSIUM 2.9 mmol/L (3.5-5.1)
[2023-06-25] MEDS: KCL 10 MEQ IVPB 10 MEQ/100 ML INFUS.BAG IVPB SCH (12:50)
[2023-06-25] MEDS: POTASSIUM CHLORIDE TABS 20 MEQ TABLET.ER (FP) PO ONE ×2 (12:50→16:58)
[2023-06-25] MEDS: ACETYLCYSTEINE 20% 200MG/ML 4 ML VIAL *FOR ORAL / INH USE ONLY NEB SCH (15:55)
[2023-06-25] MEDS: LEVALBUTEROL HCL 0.31 MG/3 ML VIAL.NEB IH SCH (15:55)
[2023-06-25] MEDS: PIPERACILLIN/TAZOB 3.375 GM 3.375 GM in DEXTROSE 5%-WATER - 50 ML IVPB SCH ×2 (16:58→17:08)
[2023-06-25 17:17] LABS: CALCIUM 8.1 mg/dL (8.5-10.1)
[2023-06-25 17:21] LABS: CREATININE 0.5 mg/dL (0.55-1.3)
[2023-06-25] MEDS ORDERED: PIPERACILLIN/TAZOB 3.375 GM 3.375 GM in DEXTROSE 5%-WATER - 50 ML IVPB SCH (18:00)
[2023-06-25] MEDS ORDERED: KCL 20 MEQ PREMIX BAG 20 MEQ/100 ML INFUS.BAG IVPB SCH (18:15)
[2023-06-25] MEDS: POTASSIUM CHLORIDE ORAL LIQUID 20 MEQ/15 ML GT ONE (18:21)
[2023-06-25] MEDS: DEXTROSE 5%-0.45% SALINE 1,000 ML IV SCH (20:13)
[2023-06-25] MEDS: METOPROLOL TARTRATE 25 MG TABLET (FP) GT SCH (21:46)
[2023-06-25] MEDS: BACITRACIN ZINC 15 GM TUBE TOPICAL OINTMENT TP SCH (21:47)
[2023-06-25] MEDS: POTASSIUM CHLORIDE ORAL LIQUID 20 MEQ/15 ML PO SCH (21:48)
[2023-06-25 22:02] VITALS: BMI 18.3
[2023-06-25] MEDS: MINERAL OIL/PET HY-PHL TOPICAL OINTMENT 454 GM JAR TP SCH (23:08)
[2023-06-26 05:31] LABS: CALCIUM 8.8 mg/dL (8.5-10.1)
[2023-06-26 05:32] LABS: BLOOD UREA NITROGEN 26.9 mg/dL (7-18)
[2023-06-26 05:35] LABS: CREATININE 0.4 mg/dL (0.55-1.3)
[2023-06-26 08:30] LABS: BASO % 0.3 % (0-2.0); EOS % 1.3 % (0-4.5); HEMATOCRIT 24.6 % (32.4-45.2); HEMOGLOBIN 7.9 GM/dL (10.7-15.3); LYMPH % 15.6 % (8-40); MCHC 32.1 g/dl (32.0-36.0); MEAN CELL VOLUME 77.8 fl (80-96); MEAN PLT VOLUME 9.1 fl (7.5-11.1); MONO % 8.2 % (3.8-10.2); NEUT % 74.6 % (42.8-82.8); PLATELET COUNT 345 10^3/uL (134-434); RBC 3.16 M/mm3 (3.60-5.2); RDW 17.9 % (11.6-15.6)
[2023-06-26 08:34] LABS: POTASSIUM 3.6 mmol/L (3.5-5.1)
[2023-06-26 08:36] LABS: CALCIUM 8.6 mg/dL (8.5-10.1); MAGNESIUM 1.8 mg/dL (1.8-2.4)
[2023-06-26 08:37] LABS: ALBUMIN 2.2 g/dl (3.4-5.0); BLOOD UREA NITROGEN 25.8 mg/dL (7-18); MAGNESIUM 1.6 mg/dL (1.8-2.4)
[2023-06-26 08:40] LABS: CREATININE 0.4 mg/dL (0.55-1.3); PHOSPHOROUS 1.6 mg/dL (2.5-4.9); PHOSPHOROUS 1.7 mg/dL (2.5-4.9)
[2023-06-26 08:41] LABS: TOT PROT 6.1 g/dl (6.4-8.2)
[2023-06-26 08:42] LABS: BILIRUBIN,TOTAL 0.5 mg/dL (0.2-1)
[2023-06-26] MEDS: DEXTROSE 5%-0.45% SALINE 1,000 ML IV SCH (10:30)
[2023-06-26] MEDS: MULTIVIT-MINERALS ORAL LIQUID PO SCH (10:32)
[2023-06-26] MEDS: NAPH,MB-DB/K PH,MBDB POWDER PACKET PO ONE (10:55)
[2023-06-26] MEDS: PANTOPRAZOLE SODIUM 160 MG in SODIUM CHLORIDE 290 ML IVPB SCH ×2 (10:56→11:54)
[2023-06-26] MEDS: AMINO ACIDS 4.25%/D5W 1,000 ML IV SCH (14:07)
[2023-06-26 21:44] LABS: POTASSIUM 3.9 mmol/L (3.5-5.1)
[2023-06-26 21:47] LABS: ALBUMIN 2.3 g/dl (3.4-5.0); BLOOD UREA NITROGEN 19.3 mg/dL (7-18); CALCIUM 8.5 mg/dL (8.5-10.1); MAGNESIUM 1.6 mg/dL (1.8-2.4)
[2023-06-26 21:50] LABS: CREATININE 0.4 mg/dL (0.55-1.3); PHOSPHOROUS 1.5 mg/dL (2.5-4.9)
[2023-06-26 21:51] LABS: TOT PROT 5.9 g/dl (6.4-8.2)
[2023-06-26 21:52] LABS: BILIRUBIN,TOTAL 0.5 mg/dL (0.2-1)
[2023-06-27] MEDS: MAGNESIUM SULF 50% (8.12 MEQ/2 ML-1 GM VIAL) IVPB ONE (00:35)
[2023-06-27] MEDS: POTASSIUM PHOSPHATE 30 MM in DEXTROSE 5%-WATER - 500 ML IVPB ONE (02:39)
[2023-06-27 10:10] LABS: BASO % 0.6 % (0-2.0); EOS % 1.6 % (0-4.5); HEMATOCRIT 26.8 % (32.4-45.2); HEMOGLOBIN 8.4 GM/dL (10.7-15.3); LYMPH % 19.8 % (8-40); MCH 24.7 pg (25.7-33.7); MCHC 31.3 g/dl (32.0-36.0); MEAN PLT VOLUME 8.9 fl (7.5-11.1); MONO % 8.4 % (3.8-10.2); NEUT % 69.6 % (42.8-82.8); PLATELET COUNT 350 10^3/uL (134-434); RBC 3.39 M/mm3 (3.60-5.2); RDW 18.3 % (11.6-15.6); WHITE BLOOD COUNT 6.3 K/mm3 (4.0-10.0)
[2023-06-27 10:32] LABS: POTASSIUM 4.2 mmol/L (3.5-5.1)
[2023-06-27 10:34] LABS: CALCIUM 8.2 mg/dL (8.5-10.1)
[2023-06-27 10:35] LABS: ALBUMIN 2.2 g/dl (3.4-5.0); MAGNESIUM 2.2 mg/dL (1.8-2.4)
[2023-06-27 10:38] LABS: CREATININE 0.4 mg/dL (0.55-1.3); PHOSPHOROUS 2.8 mg/dL (2.5-4.9)
[2023-06-27 10:39] LABS: TOT PROT 6.3 g/dl (6.4-8.2)
[2023-06-27 10:40] LABS: BILIRUBIN,TOTAL 0.5 mg/dL (0.2-1)
[2023-06-27] MEDS ORDERED: METOPROLOL TARTRATE 5 MG/5 ML VIAL IVPUSH PRN (13:26)
[2023-06-27] MEDS: ZINC OXIDE 20% TOPICAL OINTMENT 30 GM TUBE TP SCH (14:21)
[2023-06-27 17:00] LABS: BASO % 0.3 % (0-2.0); EOS % 1.9 % (0-4.5); HEMATOCRIT 27.3 % (32.4-45.2); HEMOGLOBIN 8.5 GM/dL (10.7-15.3); LYMPH % 18.7 % (8-40); MCH 24.9 pg (25.7-33.7); MCHC 31.1 g/dl (32.0-36.0); MEAN CELL VOLUME 80.1 fl (80-96); MEAN PLT VOLUME 8.5 fl (7.5-11.1); MONO % 11.2 % (3.8-10.2); NEUT % 67.9 % (42.8-82.8); PLATELET COUNT 334 10^3/uL (134-434); RBC 3.41 M/mm3 (3.60-5.2); RDW 18.6 % (11.6-15.6); WHITE BLOOD COUNT 6.4 K/mm3 (4.0-10.0)
[2023-06-28 08:45] LABS: BASO % 0.2 % (0-2.0); EOS % 3.5 % (0-4.5); HEMATOCRIT 26.6 % (32.4-45.2); HEMOGLOBIN 8.4 GM/dL (10.7-15.3); LYMPH % 20.9 % (8-40); MCH 24.7 pg (25.7-33.7); MCHC 31.5 g/dl (32.0-36.0); MEAN CELL VOLUME 78.6 fl (80-96); MEAN PLT VOLUME 8.8 fl (7.5-11.1); MONO % 9.9 % (3.8-10.2); NEUT % 65.5 % (42.8-82.8); PLATELET COUNT 356 10^3/uL (134-434); RBC 3.38 M/mm3 (3.60-5.2); WHITE BLOOD COUNT 5.1 K/mm3 (4.0-10.0)
[2023-06-28 09:12] LABS: POTASSIUM 3.8 mmol/L (3.5-5.1)
[2023-06-28 09:15] LABS: MAGNESIUM 1.9 mg/dL (1.8-2.4)
[2023-06-28 09:18] LABS: PHOSPHOROUS 2.3 mg/dL (2.5-4.9)
[2023-06-28 09:19] LABS: ALBUMIN 2.3 g/dl (3.4-5.0); BLOOD UREA NITROGEN 11.3 mg/dL (7-18); CALCIUM 8.6 mg/dL (8.5-10.1)
[2023-06-28 09:22] LABS: CREATININE 0.4 mg/dL (0.55-1.3)
[2023-06-28 09:24] LABS: BILIRUBIN,TOTAL 0.8 mg/dL (0.2-1); TOT PROT 5.9 g/dl (6.4-8.2)
[2023-06-28] MEDS: POTASSIUM PHOSPHATE 30 MM in SODIUM CHLORIDE 500 ML IVPB ONE (17:12)
[2023-06-29 07:47] LABS: BASO % 0.3 % (0-2.0); HEMATOCRIT 25.5 % (32.4-45.2); HEMOGLOBIN 8.1 GM/dL (10.7-15.3); LYMPH % 12.8 % (8-40); MCH 24.8 pg (25.7-33.7); MCHC 31.9 g/dl (32.0-36.0); MEAN CELL VOLUME 77.9 fl (80-96); MEAN PLT VOLUME 8.6 fl (7.5-11.1); MONO % 8.9 % (3.8-10.2); PLATELET COUNT 379 10^3/uL (134-434); RBC 3.27 M/mm3 (3.60-5.2); RDW 18.3 % (11.6-15.6); WHITE BLOOD COUNT 6.6 K/mm3 (4.0-10.0)
[2023-06-29 08:24] LABS: POTASSIUM 3.7 mmol/L (3.5-5.1)
[2023-06-29 08:32] LABS: ALBUMIN 2.3 g/dl (3.4-5.0); BLOOD UREA NITROGEN 14.4 mg/dL (7-18); CALCIUM 8.4 mg/dL (8.5-10.1); MAGNESIUM 1.7 mg/dL (1.8-2.4)
[2023-06-29 08:34] LABS: PHOSPHOROUS 2.2 mg/dL (2.5-4.9)
[2023-06-29 08:35] LABS: CREATININE 0.3 mg/dL (0.55-1.3)
[2023-06-29 08:38] LABS: BILIRUBIN,TOTAL 0.4 mg/dL (0.2-1)
[2023-06-29] MEDS: ACETAMINOPHEN 1000 MG/100 ML BAG IVPB PRN (10:22)
[2023-06-29] MEDS: POTASSIUM PHOSPHATE 30 MM in SODIUM CHLORIDE 500 ML IVPB ONE (17:11)
[2023-06-29] MEDS: MAGNESIUM SULF 50% (8.12 MEQ/2 ML-1 GM VIAL) IVPB ONE ×2 (17:52→19:44)
[2023-06-29] MEDS: APIXABAN 2.5 MG TABLET GT SCH (22:34)
[2023-06-30 09:11] LABS: BASO % 0.3 % (0-2.0); EOS % 0.8 % (0-4.5); HEMOGLOBIN 8.2 GM/dL (10.7-15.3); LYMPH % 7.3 % (8-40); MCH 24.7 pg (25.7-33.7); MCHC 31.7 g/dl (32.0-36.0); MEAN CELL VOLUME 78.1 fl (80-96); MEAN PLT VOLUME 8.7 fl (7.5-11.1); MONO % 6.9 % (3.8-10.2); NEUT % 84.7 % (42.8-82.8); PLATELET COUNT 367 10^3/uL (134-434); RBC 3.33 M/mm3 (3.60-5.2); WHITE BLOOD COUNT 10.4 K/mm3 (4.0-10.0)
[2023-06-30 09:44] LABS: POTASSIUM 3.7 mmol/L (3.5-5.1)
[2023-06-30 09:47] LABS: ALBUMIN 2.2 g/dl (3.4-5.0); BLOOD UREA NITROGEN 14.5 mg/dL (7-18); MAGNESIUM 1.8 mg/dL (1.8-2.4)
[2023-06-30 09:49] LABS: CALCIUM 8.7 mg/dL (8.5-10.1)
[2023-06-30 09:50] LABS: CREATININE 0.3 mg/dL (0.55-1.3); PHOSPHOROUS 2.4 mg/dL (2.5-4.9)
[2023-06-30 09:51] LABS: BILIRUBIN,TOTAL 0.4 mg/dL (0.2-1); TOT PROT 5.8 g/dl (6.4-8.2)
[2023-06-30] MEDS: POTASSIUM PHOSPHATE 30 MM in SODIUM CHLORIDE 500 ML IVPB ONE (17:31)
[2023-07-01 09:19] LABS: BASO % 0.7 % (0-2.0); EOS % 2.1 % (0-4.5); HEMATOCRIT 23.3 % (32.4-45.2); HEMOGLOBIN 7.5 GM/dL (10.7-15.3); LYMPH % 12.6 % (8-40); MCH 25.1 pg (25.7-33.7); MCHC 32.3 g/dl (32.0-36.0); MEAN CELL VOLUME 77.6 fl (80-96); MEAN PLT VOLUME 8.7 fl (7.5-11.1); MONO % 6.6 % (3.8-10.2); PLATELET COUNT 349 10^3/uL (134-434); WHITE BLOOD COUNT 8.4 K/mm3 (4.0-10.0)
[2023-07-01 09:35] LABS: POTASSIUM 4.1 mmol/L (3.5-5.1)
[2023-07-01 09:44] LABS: BLOOD UREA NITROGEN 15.6 mg/dL (7-18)
[2023-07-01 09:45] LABS: CALCIUM 8.8 mg/dL (8.5-10.1); MAGNESIUM 1.9 mg/dL (1.8-2.4)
[2023-07-01 09:48] LABS: BILIRUBIN,TOTAL 0.4 mg/dL (0.2-1); CREATININE 0.3 mg/dL (0.55-1.3); PHOSPHOROUS 2.5 mg/dL (2.5-4.9)
[2023-07-01 09:49] LABS: TOT PROT 5.6 g/dl (6.4-8.2)
[2023-07-01] MEDS: AMINO ACIDS 4.25%/D5W 1,000 ML IV SCH (12:32)
[2023-07-01] MEDS ORDERED: FAT EMULSION/OLIVE/SOY (CLINOLIPID) 250 ML EMULSION IV SCH (22:00)
[2023-07-01] MEDS: FAT EMULSION/OLIVE/SOY/PHOSPHO 250 ML IV SCH (22:24)
[2023-07-02 08:44] LABS: BASO % 0.7 % (0-2.0); EOS % 2.2 % (0-4.5); HEMATOCRIT 23.2 % (32.4-45.2); HEMOGLOBIN 8.6 GM/dL (10.7-15.3); LYMPH % 14.9 % (8-40); MCH 29.2 pg (25.7-33.7); MCHC 37.1 g/dl (32.0-36.0); MEAN CELL VOLUME 78.5 fl (80-96); MONO % 8.5 % (3.8-10.2); NEUT % 73.7 % (42.8-82.8); PLATELET COUNT 339 10^3/uL (134-434); RBC 2.95 M/mm3 (3.60-5.2); RDW 19.2 % (11.6-15.6)
[2023-07-02 14:17] LABS: POTASSIUM 3.6 mmol/L (3.5-5.1)
[2023-07-02 14:21] LABS: BLOOD UREA NITROGEN 11.7 mg/dL (7-18); MAGNESIUM 1.7 mg/dL (1.8-2.4)
[2023-07-02 14:24] LABS: CREATININE 0.3 mg/dL (0.55-1.3); PHOSPHOROUS 2.2 mg/dL (2.5-4.9)
[2023-07-02 14:26] LABS: BILIRUBIN,TOTAL 0.4 mg/dL (0.2-1)
[2023-07-02 14:29] LABS: ALBUMIN 2.1 g/dl (3.4-5.0); CALCIUM 9.5 mg/dL (8.5-10.1)
[2023-07-02 16:50] LABS: CHOLESTEROL 153 mg/dL (50-200)
[2023-07-02 16:51] LABS: LDL CHOLESTEROL (ONLY SJRH) 81 mg/dL (5-100)
[2023-07-02 16:53] LABS: HDL CHOLESTEROL 59 mg/dL (40-60)
[2023-07-03 07:46] LABS: BASO % 0.7 % (0-2.0); EOS % 2.4 % (0-4.5); HEMATOCRIT 27.1 % (32.4-45.2); HEMOGLOBIN 8.4 GM/dL (10.7-15.3); MCH 24.3 pg (25.7-33.7); MCHC 31.1 g/dl (32.0-36.0); MEAN PLT VOLUME 8.7 fl (7.5-11.1); MONO % 7.9 % (3.8-10.2); PLATELET COUNT 400 10^3/uL (134-434); RBC 3.47 M/mm3 (3.60-5.2); RDW 18.9 % (11.6-15.6); WHITE BLOOD COUNT 7.4 K/mm3 (4.0-10.0)
[2023-07-03 07:58] LABS: POTASSIUM 3.5 mmol/L (3.5-5.1)
[2023-07-03 08:02] LABS: ALBUMIN 2.3 g/dl (3.4-5.0); BLOOD UREA NITROGEN 14.7 mg/dL (7-18); CALCIUM 9.3 mg/dL (8.5-10.1); MAGNESIUM 1.9 mg/dL (1.8-2.4)
[2023-07-03 08:05] LABS: CREATININE 0.4 mg/dL (0.55-1.3); PHOSPHOROUS 2.3 mg/dL (2.5-4.9)
[2023-07-03 08:07] LABS: BILIRUBIN,TOTAL 0.5 mg/dL (0.2-1); TOT PROT 6.4 g/dl (6.4-8.2)
[2023-07-03] MEDS: HEPARIN NA (PORCINE) 5,000 UNITS/ML 1ML VIAL SQ SCH (22:25)
[2023-07-04] MEDS: POTASSIUM PHOSPHATE 30 MM in SODIUM CHLORIDE 500 ML IVPB ONE (15:34)
[2023-07-05 12:27] LABS: BASO % 0.6 % (0-2.0); EOS % 1.9 % (0-4.5); HEMATOCRIT 25.9 % (32.4-45.2); HEMOGLOBIN 8.1 GM/dL (10.7-15.3); LYMPH % 14.7 % (8-40); MCHC 31.4 g/dl (32.0-36.0); MEAN CELL VOLUME 76.6 fl (80-96); MEAN PLT VOLUME 8.8 fl (7.5-11.1); MONO % 9.7 % (3.8-10.2); NEUT % 73.1 % (42.8-82.8); PLATELET COUNT 319 10^3/uL (134-434); RBC 3.38 M/mm3 (3.60-5.2); RDW 18.8 % (11.6-15.6); WHITE BLOOD COUNT 5.9 K/mm3 (4.0-10.0)
[2023-07-05 12:37] LABS: CALCIUM 9.5 mg/dL (8.5-10.1)
[2023-07-05 12:38] LABS: ALBUMIN 2.2 g/dl (3.4-5.0); BLOOD UREA NITROGEN 19.7 mg/dL (7-18); MAGNESIUM 1.6 mg/dL (1.8-2.4)
[2023-07-05 12:40] LABS: POTASSIUM 3.7 mmol/L (3.5-5.1)
[2023-07-05 12:41] LABS: CREATININE 0.3 mg/dL (0.55-1.3); PHOSPHOROUS 2.3 mg/dL (2.5-4.9)
[2023-07-05 12:42] LABS: BILIRUBIN,TOTAL 0.3 mg/dL (0.2-1); TOT PROT 6.2 g/dl (6.4-8.2)
[2023-07-06 09:04] LABS: BLOOD UREA NITROGEN 16.2 mg/dL (7-18); CALCIUM 9.2 mg/dL (8.5-10.1); CREATININE 0.3 mg/dL (0.55-1.3); MAGNESIUM 1.7 mg/dL (1.8-2.4); PHOSPHOROUS 2.2 mg/dL (2.5-4.9); POTASSIUM 3.6 mmol/L (3.5-5.1)
[2023-07-06 11:57] LABS: HEMOGLOBIN 8.3 GM/dL (10.7-15.3); MCH 23.9 pg (25.7-33.7); MCHC 30.8 g/dl (32.0-36.0); MEAN CELL VOLUME 77.9 fl (80-96); MEAN PLT VOLUME 8.8 fl (7.5-11.1); PLATELET COUNT 322 10^3/uL (134-434); RBC 3.47 M/mm3 (3.60-5.2); RDW 18.8 % (11.6-15.6); WHITE BLOOD COUNT 5.5 K/mm3 (4.0-10.0)
[2023-07-06] MEDS: MAGNESIUM SULF 50% (8.12 MEQ/2 ML-1 GM VIAL) IVPB ONE (13:44)
[2023-07-06] MEDS: POTASSIUM PHOSPHATE 30 MM in SODIUM CHLORIDE 500 ML IVPB ONE (14:43)
[2023-07-07 08:22] LABS: POTASSIUM 3.6 mmol/L (3.5-5.1)
[2023-07-07 08:29] LABS: BASO % 0.7 % (0-2.0); EOS % 3.5 % (0-4.5); HEMATOCRIT 26.5 % (32.4-45.2); HEMOGLOBIN 8.6 GM/dL (10.7-15.3); LYMPH % 15.6 % (8-40); MCH 24.6 pg (25.7-33.7); MCHC 32.3 g/dl (32.0-36.0); MEAN CELL VOLUME 76.2 fl (80-96); MEAN PLT VOLUME 8.5 fl (7.5-11.1); MONO % 9.5 % (3.8-10.2); NEUT % 70.7 % (42.8-82.8); PLATELET COUNT 324 10^3/uL (134-434); RBC 3.48 M/mm3 (3.60-5.2); RDW 18.8 % (11.6-15.6); WHITE BLOOD COUNT 5.7 K/mm3 (4.0-10.0)
[2023-07-07 08:30] LABS: ALBUMIN 2.3 g/dl (3.4-5.0); CREATININE 0.3 mg/dL (0.55-1.3)
[2023-07-07 08:31] LABS: BILIRUBIN,TOTAL 0.3 mg/dL (0.2-1); CALCIUM 9.1 mg/dL (8.5-10.1); MAGNESIUM 2.1 mg/dL (1.8-2.4); TOT PROT 6.8 g/dl (6.4-8.2)
[2023-07-07 08:33] LABS: PHOSPHOROUS 2.3 mg/dL (2.5-4.9)
[2023-07-07] MEDS: metoPROLOL SUCCINATE 25 MG TAB.SR.24H (FP) PO SCH (21:16)
[2023-07-07] MEDS: APIXABAN 2.5 MG TABLET PO SCH (21:16)
[2023-07-08 06:49] LABS: HEMOGLOBIN 8.6 GM/dL (10.7-15.3); MCH 24.1 pg (25.7-33.7); MCHC 31.9 g/dl (32.0-36.0); MEAN CELL VOLUME 75.5 fl (80-96); MEAN PLT VOLUME 8.8 fl (7.5-11.1); PLATELET COUNT 336 10^3/uL (134-434); RBC 3.57 M/mm3 (3.60-5.2); RDW 18.5 % (11.6-15.6); WHITE BLOOD COUNT 6.4 K/mm3 (4.0-10.0)
[2023-07-08 07:14] LABS: POTASSIUM 3.6 mmol/L (3.5-5.1)
[2023-07-08 07:29] LABS: BLOOD UREA NITROGEN 17.8 mg/dL (7-18); CALCIUM 9.2 mg/dL (8.5-10.1)
[2023-07-08 07:33] LABS: CREATININE 0.3 mg/dL (0.55-1.3)
[2023-07-08] MEDS ORDERED: IOHEXOL (OMNIPAQUE PO) 12 MG/ML - 500 ML BOTTLE PO ONE (14:19)
[2023-07-08] MEDS: AMINO ACIDS 4.25%/D5W 1,000 ML IV SCH (22:48)
[2023-07-08] MEDS: FAT EMULSION/OLIVE/SOY/PHOSPHO 250 ML IV SCH (23:12)
[2023-07-09] MEDS: AMINO ACIDS 4.25%/D5W 1,000 ML IV SCH ×2 (00:42→17:32)
[2023-07-09] MEDS: ACETAMINOPHEN 1000 MG/100 ML BAG IVPB PRN (14:24)
[2023-07-09] MEDS: APIXABAN 2.5 MG TABLET GT SCH (22:28)
[2023-07-09] MEDS: METOPROLOL TARTRATE 25 MG TABLET (FP) GT SCH (22:28)
[2023-07-10 07:41] LABS: HEMATOCRIT 26.8 % (32.4-45.2); HEMOGLOBIN 8.4 GM/dL (10.7-15.3); MCH 23.9 pg (25.7-33.7); MCHC 31.6 g/dl (32.0-36.0); MEAN CELL VOLUME 75.8 fl (80-96); MEAN PLT VOLUME 8.9 fl (7.5-11.1); PLATELET COUNT 311 10^3/uL (134-434); RBC 3.53 M/mm3 (3.60-5.2); RDW 18.8 % (11.6-15.6); WHITE BLOOD COUNT 6.8 K/mm3 (4.0-10.0)
[2023-07-10] MEDS: MULTIVIT-MINERALS ORAL LIQUID GT SCH (09:59)
[2023-07-11 06:53] LABS: HEMOGLOBIN 8.9 GM/dL (10.7-15.3); MCH 23.7 pg (25.7-33.7); MCHC 31.7 g/dl (32.0-36.0); MEAN CELL VOLUME 74.8 fl (80-96); MEAN PLT VOLUME 9.2 fl (7.5-11.1); PLATELET COUNT 306 10^3/uL (134-434); RBC 3.74 M/mm3 (3.60-5.2); RDW 18.5 % (11.6-15.6); WHITE BLOOD COUNT 5.5 K/mm3 (4.0-10.0)
[2023-07-11 07:07] LABS: BLOOD UREA NITROGEN 20.4 mg/dL (7-18); MAGNESIUM 1.7 mg/dL (1.8-2.4); POTASSIUM 3.9 mmol/L (3.5-5.1)
[2023-07-11 07:10] LABS: CREATININE 0.4 mg/dL (0.55-1.3); PHOSPHOROUS 2.8 mg/dL (2.5-4.9)
[2023-07-11 08:07] LABS: CALCIUM 9.2 mg/dL (8.5-10.1)
[2023-07-12 06:57] VITALS: RESP 18
[2023-07-12] MEDS: MAGNESIUM 1GM/D5W 100ML - 100 ML IVPB IVPB ONE (09:29)
[2023-07-12 12:32] LABS: BASO % 0.6 % (0-2.0); EOS % 4.2 % (0-4.5); HEMATOCRIT 25.5 % (32.4-45.2); LYMPH % 23.4 % (8-40); MCH 23.4 pg (25.7-33.7); MCHC 31.2 g/dl (32.0-36.0); MEAN CELL VOLUME 75.1 fl (80-96); MEAN PLT VOLUME 9.5 fl (7.5-11.1); MONO % 8.4 % (3.8-10.2); NEUT % 63.4 % (42.8-82.8); PLATELET COUNT 321 10^3/uL (134-434); RDW 18.8 % (11.6-15.6); WHITE BLOOD COUNT 6.3 K/mm3 (4.0-10.0)
[2023-07-12 12:59] LABS: POTASSIUM 3.9 mmol/L (3.5-5.1)
[2023-07-12 13:01] LABS: BLOOD UREA NITROGEN 18.5 mg/dL (7-18); CALCIUM 9.4 mg/dL (8.5-10.1); MAGNESIUM 1.8 mg/dL (1.8-2.4)
[2023-07-12 13:05] LABS: CREATININE 0.3 mg/dL (0.55-1.3); PHOSPHOROUS 2.4 mg/dL (2.5-4.9)
[2023-07-12 13:58] VITALS: PULSE 69
[2023-07-12 14:07] VITALS: BP 157/77; TEMP 98.3
== END 2023-07-12 21:00 | DRG 871 ==
LOC: JER 14:10 → JERBED 21:26 → J6S 06-19 06:42 → OBSVTOIN 06-21 10:02 → J4S 06-24 21:10
PROVIDERS: ADMIT Internal Medicine; ATTEND Internal Medicine
PROC: 0D20XUZ Change Feeding Device in Upper Intestinal Tract, External Approach (ICD-10-PCS; principal; 2023-06-21)
PROC: 30233N1 Transfusion of Nonautologous Red Blood Cells into Peripheral Vein, Percutaneous Approach (ICD-10-PCS; 2023-06-24)
PROC: 0DJ08ZZ Inspection of Upper Intestinal Tract, Via Natural or Artificial Opening Endoscopic (ICD-10-PCS; 2023-06-25)
PROC: 0D20XUZ Change Feeding Device in Upper Intestinal Tract, External Approach (ICD-10-PCS; 2023-07-06)
DX: A41.89 Other specified sepsis (principal); E43 Unspecified severe protein-calorie malnutrition; L89.013 Pressure ulcer of right elbow, stage 3; J69.0 Pneumonitis due to inhalation of food and vomit; R53.2 Functional quadriplegia; J96.01 Acute respiratory failure with hypoxia; N17.9 Acute kidney failure, unspecified; I69.351 Hemiplegia and hemiparesis following cerebral infarction affecting right dominant side; L03.311 Cellulitis of abdominal wall; K94.23 Gastrostomy malfunction; K92.2 Gastrointestinal hemorrhage, unspecified; D62 Acute posthemorrhagic anemia; Z68.1 Body mass index [BMI] 19.9 or less, adult; K44.9 Diaphragmatic hernia without obstruction or gangrene; R79.89 Other specified abnormal findings of blood chemistry; J10.1 Influenza due to other identified influenza virus with other respiratory manifestations; I10 Essential (primary) hypertension; E78.00 Pure hypercholesterolemia, unspecified; F03.90 Unspecified dementia, unspecified severity, without behavioral disturbance, psychotic disturbance, mood disturbance, and anxiety; G30.9 Alzheimer's disease, unspecified; F02.80 Dementia in other diseases classified elsewhere, unspecified severity, without behavioral disturbance, psychotic disturbance, mood disturbance, and anxiety; I69.320 Aphasia following cerebral infarction; D50.9 Iron deficiency anemia, unspecified; Y83.9 Surgical procedure, unspecified as the cause of abnormal reaction of the patient, or of later complication, without mention of misadventure at the time of the procedure; L89.322 Pressure ulcer of left buttock, stage 2; L89.312 Pressure ulcer of right buttock, stage 2; L89.019 Pressure ulcer of right elbow, unspecified stage; I48.91 Unspecified atrial fibrillation; R19.7 Diarrhea, unspecified
CPT/HCPCS: 0241U-QW; 36415; 36430; 36600; 71045-TC-FY; 71250-TC; 71260-TC; 74018-TC-FY; 74176-TC; 74177-TC; 80048; 80053; 80061; 81003; 82271; 82272; 82550; 82553; 82728; 82803; 82962; 83540; 83550; 83605; 83615; 83735; 83880; 84100; 84484; 85025; 85027; 85045; 85610; 85730; 86850; 86900; 86901; 86922; 87040; 87086; 93005; 93010; 94640; 99285-25; G0378; J0131; J1644; P9038; P9058

== ENCOUNTER 2023-08-07 21:06 | Inpatient (IN) | payer OTHER ==
[2023-08-07 23:07] LABS: BASO % 0.4 % (0-2.0); HEMATOCRIT 26.1 % (32.4-45.2); LYMPH % 12.4 % (8-40); MCH 22.8 pg (25.7-33.7); MCHC 30.9 g/dl (32.0-36.0); MEAN CELL VOLUME 73.8 fl (80-96); MEAN PLT VOLUME 8.6 fl (7.5-11.1); MONO % 7.9 % (3.8-10.2); NEUT % 72.3 % (42.8-82.8); PLATELET COUNT 343 10^3/uL (134-434); RBC 3.53 M/mm3 (3.60-5.2); RDW 20.7 % (11.6-15.6); WHITE BLOOD COUNT 6.8 K/mm3 (4.0-10.0)
[2023-08-07 23:14] LABS: INR 1.32 (0.83-1.09); PROTHROMBIN TIME (PATIENT) 15.3 SEC (9.7-13.0)
[2023-08-07 23:37] LABS: VENOUS BASE EXCESS 6.2 mmol/L (-2-2); VENOUS O2 SATURATION 44.9 % (70-80); VENOUS PCO2 48.9 mmHg (38-52); VENOUS PH 7.426 (7.310-7.410)
[2023-08-07 23:56] LABS: POTASSIUM 4.9 mmol/L (3.5-5.1)
[2023-08-07 23:57] LABS: ANISOCYTOSIS 2+; MACROCYTOSIS 1+; TARGET CELLS 1+
[2023-08-07 23:58] LABS: BLOOD UREA NITROGEN 23.9 mg/dL (7-18)
[2023-08-07 23:59] LABS: ALBUMIN 2.3 g/dl (3.4-5.0)
[2023-08-08 00:02] LABS: CREATININE 0.4 mg/dL (0.55-1.3)
[2023-08-08 00:03] LABS: BILIRUBIN,TOTAL 0.4 mg/dL (0.2-1); TOT PROT 7.3 g/dl (6.4-8.2)
[2023-08-08] MEDS ORDERED: PIPERACILLIN/TAZOB 4.5 GM 4.5 GM/100 ML BAG IVPB ONE (01:11)
[2023-08-08] MEDS ORDERED: PANTOPRAZOLE SODIUM 40 MG VIAL ONE (01:12)
[2023-08-08] MEDS: PIPERACILLIN/TAZOBACTAM 4.5 GM VIAL IVPB ONE (01:24)
[2023-08-08] MEDS: SODIUM CHLORIDE 0.9% 500 ML INFUS.BAG IV ONE (01:24)
[2023-08-08] MEDS: PANTOPRAZOLE SODIUM 40 MG VIAL IVPUSH ONE (01:25)
[2023-08-08] MEDS ORDERED: VANCOMYCIN 1 GRAM (PRE-DOCKED) 1,000 MG/250 ML BAG IVPB ONE (03:36)
[2023-08-08] MEDS: VANCOMYCIN 1,000 MG in DEXTROSE 5%-WATER - 250 ML IVPB ONE (03:51)
[2023-08-08] MEDS ORDERED: hydrALAZINE HCL 20 MG/ML VIAL IVPUSH PRN (05:33)
[2023-08-08] MEDS: ALBUTEROL SO4 2.5/IPRATROPIUM 0.5 INH SOL 3 ML VIAL.NEB. NEB SCH (07:30)
[2023-08-08] MEDS ORDERED: hydrALAZINE HCL 20 MG/ML VIAL IVPB PRN (09:03)
[2023-08-08 09:23] LABS: POTASSIUM 3.9 mmol/L (3.5-5.1)
[2023-08-08 09:27] LABS: CALCIUM 8.9 mg/dL (8.5-10.1)
[2023-08-08 09:29] LABS: ALBUMIN 2.4 g/dl (3.4-5.0); BLOOD UREA NITROGEN 21.7 mg/dL (7-18)
[2023-08-08 09:31] LABS: CREATININE 0.4 mg/dL (0.55-1.3); PHOSPHOROUS 2.6 mg/dL (2.5-4.9)
[2023-08-08 09:32] LABS: BILIRUBIN,TOTAL 0.4 mg/dL (0.2-1)
[2023-08-08 09:33] LABS: TOT PROT 6.8 g/dl (6.4-8.2)
[2023-08-08] MEDS: MINERAL OIL/PET HY-PHL TOPICAL OINTMENT 454 GM JAR TP SCH (10:19)
[2023-08-08] MEDS: METOPROLOL TARTRATE 5 MG/5 ML VIAL IVPB SCH (10:42)
[2023-08-08] MEDS ORDERED: ACETAMINOPHEN 325 MG TABLET (FP) PO PRN (12:44)
[2023-08-08 14:12] LABS: EPI CELLS 29 /uL (0-25.1); HYALINE CASTS 2 /uL (0-3.1); URINE APPEARANCE CLOUDY; URINE BACTERIA 115 /uL (0-1359); URINE BILIRUBIN NEGATIVE (NEGATIVE); URINE COLOR YELLOW; URINE GLUCOSE (UA) NEGATIVE (NEGATIVE); URINE KETONE 1+ (NEGATIVE); URINE LEUK ESTERASE 3+ (NEGATIVE); URINE NITRITE NEGATIVE (NEGATIVE); URINE PROTEIN 1+ (NEGATIVE); URINE RBC 32 /uL (0-23.9); URINE UROBILINOGEN 0.2 mg/dL (0.2-1.0); URINE WBC 1899 /uL (0-25.8)
[2023-08-08 14:17] LABS: YEAST NEGATIVE (NEGATIVE)
[2023-08-08] MEDS: hydrALAZINE HCL 25 MG TABLET (FP) GT SCH (16:53)
[2023-08-08] MEDS: FAMOTIDINE 20 MG/2.5 ML ORAL LIQUID GT SCH (22:39)
[2023-08-08] MEDS: ASCORBIC ACID 500 MG TABLET (FP) GT SCH (22:40)
[2023-08-08] MEDS: METOPROLOL TARTRATE 25 MG TABLET (FP) GT SCH (22:40)
[2023-08-08] MEDS: ATORVASTATIN CA 10 MG TABLET (FP) GT SCH (22:40)
[2023-08-08] MEDS: LATANOPROST 0.005% OPHTH SOLN 2.5ML BOTTLE OU SCH (22:40)
[2023-08-09 09:31] LABS: BASO % 0.5 % (0-2.0); EOS % 11.7 % (0-4.5); HEMATOCRIT 22.9 % (32.4-45.2); HEMOGLOBIN 7.2 GM/dL (10.7-15.3); LYMPH % 15.4 % (8-40); MCHC 31.3 g/dl (32.0-36.0); MEAN CELL VOLUME 73.3 fl (80-96); MEAN PLT VOLUME 8.6 fl (7.5-11.1); MONO % 10.7 % (3.8-10.2); NEUT % 61.7 % (42.8-82.8); PLATELET COUNT 313 10^3/uL (134-434); RBC 3.12 M/mm3 (3.60-5.2); RDW 20.9 % (11.6-15.6); WHITE BLOOD COUNT 5.7 K/mm3 (4.0-10.0)
[2023-08-09] MEDS ORDERED: ACETAMINOPHEN 325 MG TABLET (FP) PO PRN (09:34)
[2023-08-09] MEDS ORDERED: ACETAMINOPHEN 650 MG/20.3 ML ORAL SOLUTION (CUPS) PO PRN (09:35)
[2023-08-09 10:07] LABS: CALCIUM 8.6 mg/dL (8.5-10.1)
[2023-08-09 10:08] LABS: ALBUMIN 2.1 g/dl (3.4-5.0); BLOOD UREA NITROGEN 18.4 mg/dL (7-18)
[2023-08-09 10:11] LABS: CREATININE 0.4 mg/dL (0.55-1.3)
[2023-08-09 10:12] LABS: TOT PROT 6.2 g/dl (6.4-8.2)
[2023-08-09 10:13] LABS: BILIRUBIN,TOTAL 0.3 mg/dL (0.2-1)
[2023-08-09] MEDS: ZINC SULFATE 220 MG CAPSULE (FP) GT SCH (10:46)
[2023-08-09] MEDS: FERROUS SO4 300 MG/5 ML ORAL SOLN UNIT DOSE CUPS GT SCH (10:46)
[2023-08-09] MEDS: FOLIC ACID 1 MG TABLET (FP) GT SCH (10:46)
[2023-08-09] MEDS: CHOLECALCIFEROL (VIT D SOLUTION) 400 UNIT/1 ML DROPS GT SCH (10:47)
[2023-08-09 15:46] VITALS: BMI 22.6
[2023-08-09 19:13] LABS: HEMATOCRIT 23.3 % (32.4-45.2); HEMOGLOBIN 7.2 GM/dL (10.7-15.3); MCH 22.7 pg (25.7-33.7); MCHC 30.8 g/dl (32.0-36.0); MEAN CELL VOLUME 73.6 fl (80-96); MEAN PLT VOLUME 8.3 fl (7.5-11.1); PLATELET COUNT 306 10^3/uL (134-434); RBC 3.17 M/mm3 (3.60-5.2); RDW 20.7 % (11.6-15.6); WHITE BLOOD COUNT 5.4 K/mm3 (4.0-10.0)
[2023-08-10] MEDS: ALBUTEROL SO4 2.5/IPRATROPIUM 0.5 INH SOL 3 ML VIAL.NEB. NEB ONE (06:34)
[2023-08-10] MEDS: MULTIVIT-MINERALS ORAL LIQUID GT SCH (10:46)
[2023-08-10] MEDS: BACITRACIN ZINC 15 GM TUBE TOPICAL OINTMENT TP SCH (10:47)
[2023-08-10] MEDS: methylPREDNISolone NA SUCC 40 MG/1 ML VIAL IVPUSH ONE (10:50)
[2023-08-10] MEDS: FUROSEMIDE 40 MG/5 ML UNIT-DOSE CUP GT ONE (13:22)
[2023-08-10 14:21] VITALS: BP 122/55; PULSE 64; RESP 18; TEMP 99.3
== END 2023-08-10 14:55 | DRG 393 ==
LOC: JER 21:06 → JERBED 08-08 00:03 → J8W 08-08 05:07
PROVIDERS: ADMIT Internal Medicine; ATTEND Nurse Practitioner Family
DX: K94.21 Gastrostomy hemorrhage (principal); L89.153 Pressure ulcer of sacral region, stage 3; I48.21 Permanent atrial fibrillation; I69.351 Hemiplegia and hemiparesis following cerebral infarction affecting right dominant side; Y83.8 Other surgical procedures as the cause of abnormal reaction of the patient, or of later complication, without mention of misadventure at the time of the procedure; I10 Essential (primary) hypertension; Z79.01 Long term (current) use of anticoagulants; F03.90 Unspecified dementia, unspecified severity, without behavioral disturbance, psychotic disturbance, mood disturbance, and anxiety; Z86.16 Personal history of COVID-19; R13.10 Dysphagia, unspecified; D50.9 Iron deficiency anemia, unspecified
CPT/HCPCS: 0241U-QW; 36415; 71045-TC-FY; 80048; 80053; 81003; 82803; 83605; 83735; 84100; 84484; 85025; 85027; 85610; 85730; 86850; 86900; 86901; 87040; 87086; 93005; 93010; 94640; 99285-25

== ENCOUNTER 2023-12-24 03:09 | Inpatient (IN) | payer OTHER ==
[2023-12-24 03:38] LABS: VENOUS BASE EXCESS -0.7 mmol/L (-2-2); VENOUS O2 SATURATION 73.7 % (70-80); VENOUS PCO2 36.9 mmHg (38-52); VENOUS PH 7.422 (7.310-7.410)
[2023-12-24 04:04] LABS: LACTIC ACID 4.6 mmol/L (0.4-2.0)
[2023-12-24] MEDS ORDERED: ACETAMINOPHEN INJECTION 100 ML IVPB ONE (04:09)
[2023-12-24] MEDS: ACETAMINOPHEN 1000 MG/100 ML BAG IVPB ONE ×2 (04:16→17:30)
[2023-12-24 04:27] LABS: HEMATOCRIT 30.9 % (32.4-45.2); HEMOGLOBIN 9.6 GM/dL (10.7-15.3); MCH 21.7 pg (25.7-33.7); MCHC 30.9 g/dl (32.0-36.0); MEAN CELL VOLUME 70.1 fl (80-96); MEAN PLT VOLUME 10.2 fl (7.5-11.1); PLATELET COUNT 464 10^3/uL (134-434); RBC 4.41 M/mm3 (3.60-5.2); RDW 18.4 % (11.6-15.6); WHITE BLOOD COUNT 21.9 K/mm3 (4.0-10.0)
[2023-12-24 04:30] LABS: EPI CELLS >36 /uL (0-25.1); HYALINE CASTS 1 /uL (0-3.1); URINE APPEARANCE CLOUDY; URINE BACTERIA 589 /uL (0-1359); URINE BILIRUBIN NEGATIVE (NEGATIVE); URINE COLOR DK YELLOW; URINE GLUCOSE (UA) NEGATIVE (NEGATIVE); URINE KETONE NEGATIVE (NEGATIVE); URINE LEUK ESTERASE TRACE (NEGATIVE); URINE NITRITE NEGATIVE (NEGATIVE); URINE PROTEIN 1+ (NEGATIVE); URINE WBC 29 /uL (0-25.8)
[2023-12-24 04:35] LABS: INR 1.33 (0.83-1.09); PROTHROMBIN TIME (PATIENT) 14.9 SEC (9.7-13.0)
[2023-12-24 04:38] LABS: ACTIVATED PTT 25.9 SECONDS (25.2-36.5)
[2023-12-24 04:45] LABS: URINE RBC 29 /uL (0-23.9)
[2023-12-24 04:51] LABS: CHLORIDE 120 mmol/L (98-107); N-TERMINAL BNP 1057.5 pg/ml (5-450); POTASSIUM 5.9 mmol/L (3.5-5.1); SODIUM 155 mmol/L (136-145)
[2023-12-24 04:53] LABS: CALCIUM 8.7 mg/dL (8.5-10.1)
[2023-12-24 04:54] LABS: ALBUMIN 1.8 g/dl (3.4-5.0); ANION GAP 11 mmol/L (4-13); CO2 24 mmol/L (21-32); GLUCOSE,RANDOM 208 mg/dL (74-106)
[2023-12-24 04:58] LABS: BILIRUBIN,TOTAL 0.4 mg/dL (0.2-1); CREATININE 1.9 mg/dL (0.55-1.3); SGOT/AST 128 U/L (15-37); SGPT/ALT 73 U/L (13-61); TOT PROT 7.5 g/dl (6.4-8.2)
[2023-12-24 05:00] LABS: ALK PHOS 151 U/L (45-117)
[2023-12-24 05:26] LABS: BLOOD UREA NITROGEN 126.9 mg/dL (7-18)
[2023-12-24] MEDS: SODIUM CHLORIDE 0.9% 500 ML INFUS.BAG IV ONE ×2 (05:30→07:33)
[2023-12-24] MEDS ORDERED: PIPERACILLIN/TAZOB 4.5 GM 4.5 GM/100 ML BAG IVPB ONE (05:31)
[2023-12-24] MEDS: PIPERACILLIN/TAZOB 4.5 GM 4.5 GM in DEXTROSE 5%-WATER 100 ML IVPB ONE (05:39)
[2023-12-24] MEDS ORDERED: VANCOMYCIN/WATER 1250 MG 1,250 MG/250 ML BAG IVPB ONE (06:23)
[2023-12-24] MEDS: VANCOMYCIN/WATER 1250 MG 1,250 MG/250 ML BAG IVPB ONE (06:28)
[2023-12-24 07:02] LABS: ANISOCYTOSIS 1+; MACROCYTOSIS 0; TARGET CELLS 1+
[2023-12-24 09:13] LABS: ARTERIAL BLD GAS O2 SATURATION 98.9 % (95-98); ARTERIAL BLOOD GAS BASE EXCESS 2.9 mmol/L (-2-2); ARTERIAL BLOOD GAS PO2 127.5 mmHg (80-100)
[2023-12-24 09:14] LABS: ALLENS TEST POSITIVE
[2023-12-24 09:18] LABS: HEMATOCRIT 28.8 % (32.4-45.2); HEMOGLOBIN 8.8 GM/dL (10.7-15.3); MCH 21.3 pg (25.7-33.7); MCHC 30.6 g/dl (32.0-36.0); MEAN CELL VOLUME 69.8 fl (80-96); PLATELET COUNT 392 10^3/uL (134-434); RBC 4.13 M/mm3 (3.60-5.2); RDW 18.2 % (11.6-15.6); WHITE BLOOD COUNT 23.8 K/mm3 (4.0-10.0)
[2023-12-24 09:42] LABS: CHLORIDE 119 mmol/L (98-107); POTASSIUM 5.1 mmol/L (3.5-5.1); SODIUM 154 mmol/L (136-145)
[2023-12-24 09:45] LABS: ALBUMIN 1.6 g/dl (3.4-5.0); ANION GAP 9 mmol/L (4-13); CALCIUM 8.5 mg/dL (8.5-10.1); CO2 25 mmol/L (21-32); GLUCOSE,RANDOM 242 mg/dL (74-106)
[2023-12-24 09:49] LABS: BILIRUBIN,TOTAL 0.6 mg/dL (0.2-1); CREATININE 2.2 mg/dL (0.55-1.3); PHOSPHOROUS 4.6 mg/dL (2.5-4.9); SGOT/AST 101 U/L (15-37); SGPT/ALT 68 U/L (13-61); TOT PROT 6.9 g/dl (6.4-8.2)
[2023-12-24 09:51] LABS: ALK PHOS 128 U/L (45-117)
[2023-12-24 09:53] LABS: BLOOD UREA NITROGEN 133.3 mg/dL (7-18)
[2023-12-24 09:59] LABS: LACTIC ACID 3.7 mmol/L (0.4-2.0)
[2023-12-24] MEDS: LACTATED RINGERS SOLUTION 1,000 ML/1,000 ML INFUS.BAG IV STA (10:39)
[2023-12-24] MEDS: METOPROLOL TARTRATE 5 MG/5 ML VIAL IVPUSH PRN (12:24)
[2023-12-24] MEDS: MUPIROCIN 2% TOPICAL OINTMENT FOR DECOLONIZATION NS SCH (12:26)
[2023-12-24 13:30] LABS: LACTIC ACID 3.4 mmol/L (0.4-2.0)
[2023-12-24] MEDS: ALBUTEROL SO4 0.083% IH SOL 2.5 MG/3 ML VIAL.NEB. NEB ONE (14:30)
[2023-12-24] MEDS: ACETYLCYSTEINE 20% 200MG/ML 4 ML VIAL *FOR ORAL / INH USE ONLY NEB ONE (14:30)
[2023-12-24] MEDS: dilTIAZem HCL 25 MG/5 ML - 5 ML VIAL IVPUSH ONE (14:49)
[2023-12-24 16:01] LABS: LACTIC ACID 2.9 mmol/L (0.4-2.0)
[2023-12-24] MEDS: dilTIAZem HCL 50 MG/10 ML - 10 ML VIAL IVPUSH ONE (16:24)
[2023-12-24] MEDS: LACTATED RINGERS SOLUTION 1,000 ML/1,000 ML INFUS.BAG IV SCH (16:24)
[2023-12-24] MEDS: SODIUM CHLORIDE 0.45% 1,000 ML IV SCH (17:00)
[2023-12-24] MEDS: PIPERACILLIN/TAZOB 2.25 GM 2.25 GM in DEXTROSE 5%-WATER - 50 ML IVPB SCH (17:30)
[2023-12-24] MEDS ORDERED: ALBUTEROL SO4 2.5/IPRATROPIUM 0.5 INH SOL 3 ML VIAL.NEB. NEB SCH (18:00)
[2023-12-24] MEDS ORDERED: METOPROLOL TARTRATE 5 MG/5 ML VIAL IVPUSH PRN (18:16)
[2023-12-24] MEDS: ALBUTEROL SO4 2.5/IPRATROPIUM 0.5 INH SOL 3 ML VIAL.NEB. NEB SCH (20:45)
[2023-12-24] MEDS: ATORVASTATIN CA 10 MG TABLET (FP) GT SCH (21:17)
[2023-12-24] MEDS: ASCORBIC ACID 500 MG TABLET (FP) GT SCH (21:17)
[2023-12-24] MEDS: CHLORHEXIDINE GLUCONATE 4% CLEANSER FOR DECOLONIZATION TP SCH (21:17)
[2023-12-24] MEDS: APIXABAN 2.5 MG TABLET GT SCH (21:17)
[2023-12-24 21:58] LABS: CHLORIDE 124 mmol/L (98-107); POTASSIUM 4.2 mmol/L (3.5-5.1); SODIUM 157 mmol/L (136-145)
[2023-12-24 21:59] LABS: CALCIUM 8.4 mg/dL (8.5-10.1)
[2023-12-24 22:01] LABS: ANION GAP 8 mmol/L (4-13); CO2 25 mmol/L (21-32); GLUCOSE,RANDOM 204 mg/dL (74-106)
[2023-12-24 22:03] LABS: CREATININE 1.4 mg/dL (0.55-1.3)
[2023-12-24 22:09] LABS: BLOOD UREA NITROGEN 125.1 mg/dL (7-18)
[2023-12-24] MEDS: LATANOPROST 0.005% OPHTH SOLN 2.5ML BOTTLE OU SCH (22:36)
[2023-12-25] MEDS: HYDROmorphone HCl 2 MG/ML VIAL IVPUSH PRN (04:13)
[2023-12-25 07:17] LABS: HEMATOCRIT 23.2 % (32.4-45.2); HEMOGLOBIN 7.2 GM/dL (10.7-15.3); MCH 21.5 pg (25.7-33.7); MEAN CELL VOLUME 69.2 fl (80-96); MEAN PLT VOLUME 10.1 fl (7.5-11.1); PLATELET COUNT 344 10^3/uL (134-434); RBC 3.36 M/mm3 (3.60-5.2); RDW 18.3 % (11.6-15.6); WHITE BLOOD COUNT 18.3 K/mm3 (4.0-10.0)
[2023-12-25 07:30] LABS: CHLORIDE 124 mmol/L (98-107); POTASSIUM 3.8 mmol/L (3.5-5.1); SODIUM 155 mmol/L (136-145)
[2023-12-25 07:32] LABS: CALCIUM 8.5 mg/dL (8.5-10.1)
[2023-12-25 07:33] LABS: ANION GAP 5 mmol/L (4-13); CO2 26 mmol/L (21-32); GLUCOSE,RANDOM 171 mg/dL (74-106); MAGNESIUM 2.8 mg/dL (1.8-2.4)
[2023-12-25 07:35] LABS: ALBUMIN 1.4 g/dl (3.4-5.0)
[2023-12-25 07:36] LABS: SGOT/AST 61 U/L (15-37); SGPT/ALT 59 U/L (13-61)
[2023-12-25 07:37] LABS: BILIRUBIN,TOTAL 0.4 mg/dL (0.2-1); CREATININE 1.1 mg/dL (0.55-1.3); PHOSPHOROUS 3.7 mg/dL (2.5-4.9); TOT PROT 6.2 g/dl (6.4-8.2)
[2023-12-25 07:39] LABS: ALK PHOS 108 U/L (45-117)
[2023-12-25 07:40] LABS: BLOOD UREA NITROGEN 112.8 mg/dL (7-18)
[2023-12-25] MEDS: MEROPENEM 1 GM in DEXTROSE 5%-WATER 100 ML IVPB SCH (09:40)
[2023-12-25] MEDS: DEXTROSE 5%-WATER - 1,000 ML IV SCH (10:00)
[2023-12-25] MEDS: FOLIC ACID 1 MG TABLET (FP) GT SCH (11:25)
[2023-12-25] MEDS: CHOLECALCIFEROL (VIT D3) 1,000 UNIT (25 MCG) TABLET GT SCH (11:25)
[2023-12-25] MEDS: FERROUS SO4 300 MG/5 ML ORAL SOLN UNIT DOSE CUPS GT SCH (11:25)
[2023-12-25] MEDS: METOPROLOL TARTRATE 5 MG/5 ML VIAL IVPUSH PRN (12:00)
[2023-12-25] MEDS ORDERED: PIPERACILLIN/TAZOB 2.25 GM 2.25 GM in DEXTROSE 5%-WATER - 50 ML IVPB SCH (18:00)
[2023-12-26 08:05] LABS: HEMATOCRIT 23.8 % (32.4-45.2); HEMOGLOBIN 7.3 GM/dL (10.7-15.3); MCH 21.3 pg (25.7-33.7); MCHC 30.7 g/dl (32.0-36.0); MEAN CELL VOLUME 69.1 fl (80-96); MEAN PLT VOLUME 10.3 fl (7.5-11.1); PLATELET COUNT 348 10^3/uL (134-434); RBC 3.45 M/mm3 (3.60-5.2); RDW 18.1 % (11.6-15.6); WHITE BLOOD COUNT 14.7 K/mm3 (4.0-10.0)
[2023-12-26 08:09] LABS: POTASSIUM 4.1 mmol/L (3.5-5.1)
[2023-12-26 08:33] LABS: CALCIUM 8.2 mg/dL (8.5-10.1)
[2023-12-26 08:34] LABS: ALBUMIN 1.4 g/dl (3.4-5.0); MAGNESIUM 2.4 mg/dL (1.8-2.4)
[2023-12-26 08:37] LABS: CREATININE 0.6 mg/dL (0.55-1.3); PHOSPHOROUS 1.9 mg/dL (2.5-4.9)
[2023-12-26 08:38] LABS: BILIRUBIN,TOTAL 0.4 mg/dL (0.2-1); TOT PROT 5.9 g/dl (6.4-8.2)
[2023-12-26 08:41] LABS: BLOOD UREA NITROGEN 59.2 mg/dL (7-18)
[2023-12-26] MEDS: PANTOPRAZOLE SODIUM 40 MG VIAL IVPUSH SCH (12:28)
[2023-12-26] MEDS: SODIUM PHOSPHATE - 15 MM in DEXTROSE 5%-WATER - 250 ML IVPB ONE (15:08)
[2023-12-26] MEDS: NAPH,MB-DB/K PH,MBDB POWDER PACKET PO SCH (15:09)
[2023-12-27] MEDS: SODIUM CHLORIDE 0.45% 1,000 ML IV SCH (12:00)
[2023-12-27] MEDS: ACETAMINOPHEN 1000 MG/100 ML BAG IVPB PRN (21:20)
[2023-12-28 07:27] LABS: HEMATOCRIT 25.4 % (32.4-45.2); HEMOGLOBIN 7.6 GM/dL (10.7-15.3); MCH 21.2 pg (25.7-33.7); MCHC 29.9 g/dl (32.0-36.0); MEAN CELL VOLUME 70.7 fl (80-96); MEAN PLT VOLUME 10.4 fl (7.5-11.1); PLATELET COUNT 352 10^3/uL (134-434); RBC 3.59 M/mm3 (3.60-5.2); RDW 18.5 % (11.6-15.6); WHITE BLOOD COUNT 21.6 K/mm3 (4.0-10.0)
[2023-12-28 07:39] LABS: POTASSIUM 3.8 mmol/L (3.5-5.1)
[2023-12-28 07:44] LABS: CALCIUM 8.2 mg/dL (8.5-10.1)
[2023-12-28 07:45] LABS: ALBUMIN 1.4 g/dl (3.4-5.0)
[2023-12-28 07:48] LABS: CREATININE 0.4 mg/dL (0.55-1.3)
[2023-12-28 07:49] LABS: BILIRUBIN,TOTAL 0.6 mg/dL (0.2-1)
[2023-12-28 07:50] LABS: TOT PROT 5.8 g/dl (6.4-8.2)
[2023-12-28 08:01] LABS: BLOOD UREA NITROGEN 21.8 mg/dL (7-18)
[2023-12-28 09:37] LABS: PLATELET ESTIMATE ADEQUATE
[2023-12-28] MEDS: AMINO ACIDS 4.25%/D5W 1,000 ML IV SCH (11:38)
[2023-12-28 15:19] VITALS: BMI 23.8
[2023-12-28] MEDS: ENOXAPARIN NA (PORCINE) 60 MG/0.6 ML DISP.SYRIN SQ SCH (21:01)
[2023-12-28] MEDS: ACETAMINOPHEN 1000 MG/100 ML BAG IVPB ONE (22:27)
[2023-12-29 07:31] LABS: HEMATOCRIT 19.5 % (32.4-45.2); MCH 21.4 pg (25.7-33.7); MCHC 30.7 g/dl (32.0-36.0); MEAN CELL VOLUME 69.7 fl (80-96); MEAN PLT VOLUME 9.8 fl (7.5-11.1); PLATELET COUNT 363 10^3/uL (134-434); RDW 18.3 % (11.6-15.6); WHITE BLOOD COUNT 18.3 K/mm3 (4.0-10.0)
[2023-12-29 08:00] LABS: ALBUMIN 1.2 g/dl (3.4-5.0); BLOOD UREA NITROGEN 18.9 mg/dL (7-18); CALCIUM 7.4 mg/dL (8.5-10.1); MAGNESIUM 1.5 mg/dL (1.8-2.4)
[2023-12-29 08:03] LABS: CREATININE 0.4 mg/dL (0.55-1.3); PHOSPHOROUS 1.7 mg/dL (2.5-4.9)
[2023-12-29 08:04] LABS: BILIRUBIN,TOTAL 1.5 mg/dL (0.2-1); TOT PROT 4.9 g/dl (6.4-8.2)
[2023-12-29] MEDS: KCL 10 MEQ IVPB 10 MEQ/100 ML INFUS.BAG IVPB SCH (08:21)
[2023-12-29 09:15] LABS: HEMATOCRIT 19.8 % (32.4-45.2); MCH 21.5 pg (25.7-33.7); MCHC 30.8 g/dl (32.0-36.0); MEAN PLT VOLUME 9.7 fl (7.5-11.1); PLATELET COUNT 372 10^3/uL (134-434); RBC 2.83 M/mm3 (3.60-5.2); RDW 18.4 % (11.6-15.6); WHITE BLOOD COUNT 17.9 K/mm3 (4.0-10.0)
[2023-12-29 09:27] LABS: HEMOGLOBIN 6.1 GM/dL (10.7-15.3)
[2023-12-29 09:49] LABS: BILIRUBIN,DIRECT 0.3 mg/dL (0.0-0.2)
[2023-12-29] MEDS: MAGNESIUM 2GM/50ML STERILE WATER IVPB IVPB ONE (09:57)
[2023-12-29] MEDS: POTASSIUM PHOSPHATE 15 MM in SODIUM CHLORIDE 100 ML IVPB ONE (14:18)
[2023-12-29] MEDS ORDERED: ACETAMINOPHEN INJECTION 100 ML IVPB ONE (17:38)
[2023-12-29] MEDS: ACETAMINOPHEN 1000 MG/100 ML BAG IVPB ONE (17:44)
[2023-12-29] MEDS: SCOPOLAMINE HYDROBROMIDE 1 PATCH PATCH.TD72 TD SCH (19:55)
[2023-12-30] MEDS: MORPHINE SULFATE/0.9% NACL/PF 100 MG/100 ML BAG IVPB SCH (12:54)
[2023-12-30] MEDS: MORPHINE 100 MG/100 ML MG IVPB SCH (20:38)
[2024-01-01] MEDS: MORPHINE 100 MG/100 ML MG IVPB SCH (17:27)
[2024-01-02 15:00] VITALS: RESP 12
[2024-01-03] MEDS ORDERED: ERTAPENEM SODIUM 1 GM in SODIUM CHLORIDE 50 ML IVPB SCH (10:30)
[2024-01-03] MEDS: ACETAMINOPHEN 1000 MG/100 ML BAG IVPB ONE (11:28)
[2024-01-03 14:37] VITALS: BP 113/40; PULSE 88
[2024-01-03 17:35] VITALS: TEMP 99.8
== END 2024-01-03 19:35 | DRG 871 ==
LOC: JER 03:09 → JERBED 06:42 → JICU 09:44 → J8W 12-30 21:00
PROVIDERS: ADMIT Internal Medicine Pulmonary Disease; ATTEND Internal Medicine
PROC: 0D20XUZ Change Feeding Device in Upper Intestinal Tract, External Approach (ICD-10-PCS; principal; 2023-12-24)
DX: A41.89 Other specified sepsis (principal); E43 Unspecified severe protein-calorie malnutrition; J96.01 Acute respiratory failure with hypoxia; L89.013 Pressure ulcer of right elbow, stage 3; R53.2 Functional quadriplegia; I69.351 Hemiplegia and hemiparesis following cerebral infarction affecting right dominant side; N17.9 Acute kidney failure, unspecified; K94.23 Gastrostomy malfunction; E87.0 Hyperosmolality and hypernatremia; I24.89 Other forms of acute ischemic heart disease; R47.01 Aphasia; R65.20 Severe sepsis without septic shock; I48.91 Unspecified atrial fibrillation; G30.9 Alzheimer's disease, unspecified; F02.80 Dementia in other diseases classified elsewhere, unspecified severity, without behavioral disturbance, psychotic disturbance, mood disturbance, and anxiety; D50.9 Iron deficiency anemia, unspecified; E78.5 Hyperlipidemia, unspecified; Z74.01 Bed confinement status; L89.892 Pressure ulcer of other site, stage 2; L89.102 Pressure ulcer of unspecified part of back, stage 2; L89.152 Pressure ulcer of sacral region, stage 2; K59.00 Constipation, unspecified; E86.0 Dehydration; Z68.23 Body mass index [BMI] 23.0-23.9, adult
CPT/HCPCS: 0241U-QW; 36415; 36600; 71045-TC-FY; 74018-TC-FY; 80048; 80053; 81003; 82248; 82272; 82803; 82962; 83010; 83605; 83615; 83735; 83880; 84100; 84484; 85025; 85027; 85384; 85610; 85730; 86850; 86900; 86901; 87040; 87086; 87186; 93005; 93010; 93306-TC; 94640; 94660; 99285-25; J0131